=== PATIENT | male | born 1965 | race Caucasian/White ===

== ENCOUNTER 2021-12-28 17:54 | Inpatient (IN) ==
[2021-12-28 18:42] LABS: Basophils # (auto) 0.04 K/uL (0-0.2); Basophils % (auto) 0.5 %; Eosinophils # (auto) 0.04 K/uL (0-0.5); Eosinophils % (auto) 0.5 %; Hematocrit (blood only) 42.8 % (42-52); Hemoglobin 14.7 g/dL (14.0-18.0); Immature Granulocytes # (auto) 0.05 K/uL (0.00-0.02); Immature Granulocytes % (auto) 0.6 %; Lymphocytes # (auto) 1.75 K/uL (1.2-3.4); Mean Corpuscular Hemoglobin 30.2 pg (25-34); Mean Corpuscular Hgb Conc 34.3 g/dL (32-36); Mean Corpuscular Volume 88.1 fL (80-100); Monocytes # (auto) 0.88 K/uL (0.11-0.59); Monocytes % (auto) 10.1 %; Neutrophils # (auto) 5.99 K/uL (1.4-6.5); Neutrophils % (auto) 68.3 %; Platelet Count 208 K/uL (130-400); RDW Standard Deviation 41.9 fL (36.4-46.3); Red Blood Count 4.86 M/uL (4.7-6.1); White Blood Count 8.75 K/uL (4.8-10.8)
[2021-12-28] MEDS ORDERED: LORazepam 2 MG/1 ML VIAL IV STA (18:50)
[2021-12-28] MEDS ORDERED: MULTI-VITAMIN INFUSION 10 ML, THIAMINE HCL 100 MG, FOLIC ACID 1 MG in SODIUM CHLORIDE 0... IV ONE (18:50)
[2021-12-28 19:03] LABS: Albumin Globulin Ratio 1.9 (0.9-2); Albumin Level 4.4 gm/dl (3.4-5.0); BUN Creatinine Ratio 13.3 (10-20); Bilirubin,Total 0.8 mg/dl (0.2-1.0); Calcium 9.5 mg/dl (8.5-10.1); Creatinine Clr Calc Pharmacy 97.9 ml/min; Est GFR (African American) 120.5 ml/min; Globulin 2.3 gm/dl (2.5-4.0); Potassium 3.7 mmol/L (3.5-5.1); Total Protein 6.7 gm/dl (6.0-8.3)
[2021-12-28 19:29] LABS: Magnesium 1.7 mg/dl (1.7-2.4); Phosphorus 3.6 mg/dl (2.5-4.9)
[2021-12-28] MEDS ORDERED: GABAPENTIN 600 MG TAB PO ONE (20:09)
[2021-12-28] MEDS ORDERED: GABAPENTIN 1200MG ALCOHOL WITHDRAWAL LOAD PO STA (20:09)
[2021-12-28] MEDS ORDERED: cloNIDine HCL 0.1 MG TAB PO ONE (22:06)
--- NOTE | 2021-12-28 22:06 | History & Physical Report ---
Date of Service December 28, 2021 Assessment & Plan (1) Alcohol withdrawal syndrome: Plan: Situational hypertension secondary to above Suicidality Hyperglycemia rule out DM Medical telemetry CHELE S, DT precautions Clonidine 1 dose now for elevated BP Initiate lisinopril if with persistent BP elevation Suicide precautions, Psych consult Re: Suicidality Check hemoglobin A1c DVT prophylaxis. Lovenox subcu Full code Text document was generated using [employer] voice recognition software. It may contain grammatical or spelling errors. Kindly contact undersigned for clarification of any documentation item in question. History of Present Illness Chief Complaint: Alcohol withdrawal Primary Care Provider: NO PCP History obtained from patient and records. Medical history significant for alcohol abuse. Patient seen at the ER last week for alcohol withdrawal and insomnia issues. Patient refused rehab recommendation. Patient discharged on Librium prescription. Librium ineffective for insomnia as per patient. Episodic tachycardia and high BP at home. Patient denies chest pain, shortness of breath, headache, abdominal pain symptoms. No prior history of alcohol withdrawal seizures. Patient admits to fleeting suicidal thoughts of blowing his head because he has had a terrible life. Patient returned to ER for evaluation. Medical History as above Surgical History : None Family History : Alcoholism Personal/Social history : Non-smoker, alcohol abuse, currently unemployed Allergies Allergy/AdvReac Type Severity Reaction Status Date / Time No Known Allergies Allergy Unverified 12/28/21 18:54 Home Medications Medication Instructions Recorded Confirmed Type No Known Home Medications 12/28/21 12/28/21 History Past Med/Surg History Social History Smoking Status: Never smoker Hx Alcohol Use: Yes Alcohol type: hard liquor Hx Substance Use: No Preferred Language: Belizean Communication Ability: Effective Executive Cyber Leader Required: No Beliefs That Will Affect Care: None Current Living Situation: Alone Other Information That Helps Us Care for You: No Feels Safe at Home: Yes Safety Concerns: Feels Safe At This Time Assistive Devices: None Review of Systems Review of Systems: As per HPI, all 10 systems reviewed, all other ROS negative Physical Exam Physical Exam: GENERAL: Comfortable, using his laptop at bedside at time of encounter, no respiratory distress SKIN: Normal color, warm HEENT: [place] palpebral conjunctivae, no ptosis, dry buccal mucosa NECK : Supple, no tenderness CHEST : CTA, no tenderness HEART : RRR, no obvious murmurs ABDOMEN: Some distention, nontender EXTREMITIES : No LE swelling/tenderness, no other conspicuous deformities noted NEUROLOGIC : Coherent, no facial asymmetry, no other gross focality Results & Data Results & Data ([facility]) Vital Signs (Past 12 Hours) Vital Signs Temp Pulse Pulse Resp BP BP Pulse Ox 12/28/21 21:49 75 19 160/94 H 97 12/28/21 21:27 67 19 174/109 H 97 12/28/21 20:45 57 L 18 170/104 H 12/28/21 20:40 56 L 18 12/28/21 20:33 67 20 167/101 H 98 12/28/21 20:30 62 17 182/117 H 12/28/21 19:38 61 158/100 H 12/28/21 18:48 63 16 213/113 H 97 12/28/21 18:01 36.7 C 83 20 218/104 H 98 Laboratory Results Laboratory Results WBC 8.75 K/uL (4.8-10.8) 12/28/21 18:30 RBC 4.86 M/uL (4.7-6.1) 12/28/21 18:30 Hgb 14.7 g/dL (14.0-18.0) 12/28/21 18:30 Hct 42.8 % (42-52) 12/28/21 18:30 MCV 88.1 fL (80-100) 12/28/21 18:30 MCH 30.2 pg (25-34) 12/28/21 18:30 MCHC 34.3 g/dL (32-36) 12/28/21 18:30 RDW Std Deviation 41.9 fL (36.4-46.3) 12/28/21 18:30 RDW Coeff of Renetta 13.0 % (11.5-14.5) 12/28/21 18:30 Plt Count 208 K/uL (130-400) 12/28/21 18:30 MPV 10.0 fL (7.4-10.4) 12/28/21 18:30 Immature Gran % (Auto) 0.6 % 12/28/21 18:30 Neut % (Auto) 68.3 % 12/28/21 18:30 Lymph % (Auto) 20.0 % 12/28/21 18:30 Graves % (Auto) 10.1 % 12/28/21 18:30 Eos % (Auto) 0.5 % 12/28/21 18:30 Baso % (Auto) 0.5 % 12/28/21 18:30 Neut # (Auto) 5.99 K/uL (1.4-6.5) 12/28/21 18:30 Lymph # (Auto) 1.75 K/uL (1.2-3.4) 12/28/21 18:30 Graves # (Auto) 0.88 K/uL (0.11-0.59) H 12/28/21 18:30 Eos # (Auto) 0.04 K/uL (0-0.5) 12/28/21 18:30 Baso # (Auto) 0.04 K/uL (0-0.2) 12/28/21 18:30 Immature Gran # (Auto) 0.05 K/uL (0.00-0.02) H 12/28/21 18:30 Sodium 137 mmol/L (136-145) 12/28/21 18:30 Potassium 3.7 mmol/L (3.5-5.1) 12/28/21 18:30 Chloride 100 mmol/L (98-107) 12/28/21 18:30 Carbon Dioxide 32 mmol/L (21-32) 12/28/21 18:30 Anion Gap 5 (3-11) 12/28/21 18:30 BUN 10 mg/dl (6-23) 12/28/21 18:30 Creatinine 0.75 mg/dl (0.6-1.4) 12/28/21 18:30 Est Cr Clr Drug Dosing 97.9 ml/min 12/28/21 18:30 Est GFR ( Amer) 120.5 ml/min 12/28/21 18:30 Est GFR (Non-Af Amer) 104.0 ml/min 12/28/21 18:30 BUN/Creatinine Ratio 13.3 (10-20) 12/28/21 18:30 Glucose 110 mg/dl (70-99(Fasting)) H 12/28/21 18:30 Calcium 9.5 mg/dl (8.5-10.1) 12/28/21 18:30 Phosphorus 3.6 mg/dl (2.5-4.9) 12/28/21 18:30 Magnesium 1.7 mg/dl (1.7-2.4) 12/28/21 18:30 Total Bilirubin 0.8 mg/dl (0.2-1.0) 12/28/21 18:30 AST 20 U/L (13-39) 12/28/21 18:30 ALT 13 U/L (7-52) 12/28/21 18:30 Alkaline Phosphatase 55 U/L (34-104) 12/28/21 18:30 Total Protein 6.7 gm/dl (6.0-8.3) 12/28/21 18:30 Albumin 4.4 gm/dl (3.4-5.0) 12/28/21 18:30 Globulin 2.3 gm/dl (2.5-4.0) L 12/28/21 18:30 Albumin/Globulin Ratio 1.9 (0.9-2) 12/28/21 18:30 Ethyl Alcohol mg/dL < 10.0 mg/dl (<10.0) 12/28/21 18:30 SARS-CoV-2, RNA, NAAT NEGATIVE (NEGATIVE) 12/28/21 20:29 Diagnostic Findings EKG as per my interpretation rate 65, NSR, LAD, LAFB, no ischemia (1) Alcohol withdrawal syndrome Complication of substance-induced condition: uncomplicated Qualified Code(s): F10.230 - Alcohol dependence with withdrawal, uncomplicated
[2021-12-28] MEDS ORDERED: LORazepam 2 MG/1 ML VIAL IV PRN ×3 (22:11)
[2021-12-28] MEDS ORDERED: ATIVAN IV ALCOHOL WITHDRAWL IV PRN (22:11)
[2021-12-28] MEDS ORDERED: oxyCODONE HCL IR 5 MG TAB (IMMEDIATE RELEASE) PO PRN (22:54)
[2021-12-28] MEDS ORDERED: ACETAMINOPHEN 325 MG TAB PO PRN (22:54)
[2021-12-28] MEDS ORDERED: PROMETHAZINE HCL 6.25 MG in SODIUM CHLORIDE 0.9% 50 ML IV PRN (22:54)
[2021-12-28] MEDS: FOLIC ACID 1 MG TAB PO SCH (23:31)
[2021-12-28] MEDS: THIAMINE HCL 100 MG TAB PO SCH (23:31)
[2021-12-29] MEDS: GABAPENTIN 600 MG TAB PO SCH ×2 (02:11→09:59)
[2021-12-29] MEDS ORDERED: MELATONIN 3 MG TAB PO PRN (02:29)
[2021-12-29] MEDS ORDERED: lisinopril 2.5 MG TAB PO ONE (05:21)
[2021-12-29 06:05] LABS: Basophils # (auto) 0.03 K/uL (0-0.2); Basophils % (auto) 0.3 %; Eosinophils # (auto) 0.12 K/uL (0-0.5); Eosinophils % (auto) 1.3 %; Hematocrit (blood only) 40.5 % (42-52); Hemoglobin 14.3 g/dL (14.0-18.0); Immature Granulocytes # (auto) 0.03 K/uL (0.00-0.02); Immature Granulocytes % (auto) 0.3 %; Lymphocytes # (auto) 2.67 K/uL (1.2-3.4); Lymphocytes % (auto) 27.9 %; Mean Corpuscular Hemoglobin 30.5 pg (25-34); Mean Corpuscular Hgb Conc 35.3 g/dL (32-36); Mean Corpuscular Volume 86.4 fL (80-100); Mean Platelet Volume 9.7 fL (7.4-10.4); Monocytes # (auto) 0.95 K/uL (0.11-0.59); Monocytes % (auto) 9.9 %; Neutrophils # (auto) 5.76 K/uL (1.4-6.5); Neutrophils % (auto) 60.3 %; Platelet Count 181 K/uL (130-400); RDW Coefficient of Variation 13.1 % (11.5-14.5); RDW Standard Deviation 41.5 fL (36.4-46.3); Red Blood Count 4.69 M/uL (4.7-6.1); White Blood Count 9.56 K/uL (4.8-10.8)
[2021-12-29 06:22] LABS: BUN Creatinine Ratio 11.8 (10-20); Est GFR (African American) 125.5 ml/min; Est GFR (Non-African American) 108.3 ml/min; Potassium 3.3 mmol/L (3.5-5.1)
[2021-12-29 07:25] LABS: Estimated Average Glucose 114 mg/dl; Hemoglobin A1C 5.6 % (4.5-5.6)
[2021-12-29 07:41] LABS: Appearance Urine Clear (Clear); Bilirubin Urine Negative (Negative); Blood Urine Negative (Negative); Color Urine Yellow; Glucose Urine UA Negative (Negative); Ketones Urine Negative (Negative); Leukocyte Esterase Urine Negative (Negative); Nitrite Urine Negative (Negative); Protein Urine Negative (Negative); Specific Gravity Urine 1.011 (1.000-1.030); Urobilinogen Urine Negative (Negative); pH Urine 7.5 (4.5-7.5)
[2021-12-29] MEDS ORDERED: POTASSIUM CHLORIDE CRTAB 20 MEQ TABCR PO STA (08:50)
[2021-12-29] MEDS ORDERED: MULTIVITAMIN TAB PO SCH (09:00)
[2021-12-29] MEDS: THIAMINE HCL 100 MG TAB PO SCH (09:06)
[2021-12-29] MEDS: FOLIC ACID 1 MG TAB PO SCH (09:06)
[2021-12-29] MEDS: ENOXAPARIN INJ 40 MG/0.4 ML SYR SQ SCH ×2 (09:06→09:18)
--- NOTE | 2021-12-29 10:54 | Electrocardiogram Report ---
Test Reason : Blood Pressure : / mmHG Vent. Rate : 068 BPM Atrial Rate : 068 BPM P-R Int : 140 ms QRS Dur : 086 ms QT Int : 408 ms P-R-T Axes : 055 -15 040 degrees QTc Int : 433 ms Normal sinus rhythm Normal ECG No previous ECGs available Confirmed by Farrukh Martínez ([id number]) on 12/29/2021 10:54:20 AM Referred By: REFERRED SELF Confirmed By:Farrukh Martínez
--- NOTE | 2021-12-29 14:44 | Discharge Summary ---
Date of Service December 29, 2021 Admission HPI Per Admitting Provider History obtained from patient and records. Medical history significant for alcohol abuse. Patient seen at the ER last week for alcohol withdrawal and insomnia issues. Patient refused rehab recommendation. Patient discharged on Librium prescription. Librium ineffective for insomnia as per patient. Episodic tachycardia and high BP at home. Patient denies chest pain, shortness of breath, headache, abdominal pain symptoms. No prior history of alcohol withdrawal seizures. Patient admits to fleeting suicidal thoughts of blowing his head because he has had a terrible life. Patient returned to ER for evaluation. Medical History as above Surgical History : None Family History : Alcoholism Personal/Social history : Non-smoker, alcohol abuse, currently unemployed Admission Exam Per Admitting Provider GENERAL: Comfortable, using his laptop at bedside at time of encounter, no respiratory distress SKIN: Normal color, warm HEENT: [place] palpebral conjunctivae, no ptosis, dry buccal mucosa NECK : Supple, no tenderness CHEST : CTA, no tenderness HEART : RRR, no obvious murmurs ABDOMEN: Some distention, nontender EXTREMITIES : No LE swelling/tenderness, no other conspicuous deformities noted NEUROLOGIC : Coherent, no facial asymmetry, no other gross focality Principal Diagnosis Alcohol abuse/dependence Uncontrolled hypertension Discharge Exam GENERAL: Alert and oriented x3. NAD, on RA. HEENT: No pallor, no icterus. Pupils equal, round and reactive to light. Oral mucosa moist. NECK: No JVD, no neck masses. HEART: S1 and S2 heard. Regular rate and rhythm. No murmur, no gallop. RESPIRATORY SYSTEM: Normal AP diameter. No accessory muscle use. No wheezing, no crackles. ABDOMEN: Soft, bowel sounds present, nontender, no distention. CENTRAL NERVOUS SYSTEM: No facial droop. Speech is clear. Obeys simple commands. Moves extremities. EXTREMITIES: No edema, no erythema seen. No hand tremors noted. Discharge Data Allergies Allergy/AdvReac Type Severity Reaction Status Date / Time No Known Allergies Allergy Unverified 12/28/21 18:54 Consultations 12/28/21 20:15 ED Decision to Admit Stat 12/28/21 22:54 Consult Psychiatry Routine Hospital Course (1) Alcohol withdrawal syndrome: 56-year-old man with alcohol abuse history presented to the ED due to concerns of withdrawal signs and symptoms and high blood pressure at home. Patient has been managed with AWSS protocol while in the hospital, his CIWA has been very low to 0 on the day of discharge, he does not intend to quit drinking upon discharge, he wants to go home and is pretty much adamant about it. He was about to leave AMA, told him he needs psychiatry clearance before he can leave AMA. Upon my examination, patient denied any further suicidality intention. Psychiatry evaluated him. Discussed with psychiatry, they cleared him for discharge from their point of view. For patient's hypertension, he is started on a small dose of lisinopril which will be continued upon DC, get blood work CBC and CMP done in a week time upon discharge. Patient reports no outpatient PCP. Advised patient to establish PCP as an outpatient for ongoing care. Discussed in detail about alcohol cessation and different methods, patient does not have interest in quitting drinking. He claims that his drinking habit is "healthy and is under his control". Following instructions were communicated to the patient at the point of discharge: Establish and follow-up with your PCP as an outpatient. Strongly advise against any drinking in future, but as discussed at the bedside you intend to continue with your drinking, if you ever have a thought of quitting drinking in future please contact with your PCP prior to doing so to avoid the risks of withdrawal and/or seizures. Drinking has a lot of side effects and adverse effects in your health as discussed at the bedside. Strongly advised to establish and maintain follow-up with psychiatry as an outpatient as discussed at the bedside. Your blood pressure was elevated while in hospital, you have been started on a small dose of lisinopril, maintain your blood pressure measurement log twice a day, take it to your primary care physician to adjust your blood pressure medication as appropriate. Get your blood work CMP and CBC done in a week time upon discharge. If you have any withdrawal signs or symptoms, please contact emergency immediately or call 911. Take medications as prescribed. Total Time Total Time Spent Total Time Spent (In Minutes): 40 Discharge Plan Discharge Items Patient Disposition: Home - Self-Care Reason For Visit: ETOH WITHDRAWAL Discharge Diagnosis: Alcohol abuse/dependence Uncontrolled hypertension Activity: Resume your previous activity Non-emergency contact: Primary Care Provider Call non-emergency contact if: you have any medication questions, your symptoms worsen and your temperature is above 101 Follow-up/Referrals: PCP,NO [Primary Care Provider] - Diet: Heart Healthy Diet Comment: Increase protein content in your diet. Addtl Attending Provider Instructions: Establish and follow-up with your PCP as an outpatient. Strongly advise against any drinking in future, but as discussed at the bedside you intend to continue with your drinking, if you ever have a thought of quitting drinking in future please contact with your PCP prior to doing so to avoid the risks of withdrawal and/or seizures. Drinking has a lot of side effects and adverse effects in your health as discussed at the bedside. Strongly advised to establish and maintain follow-up with psychiatry as an outpatient as discussed at the bedside. Your blood pressure was elevated while in hospital, you have been started on a small dose of lisinopril, maintain your blood pressure measurement log twice a day, take it to your primary care physician to adjust your blood pressure medication as appropriate. Get your blood work CMP and CBC done in a week time upon discharge. If you have any withdrawal signs or symptoms, please contact emergency immediately or call 911. Take medications as prescribed. Pending Studies at Discharge: No Stand-Alone Forms: My [facility], Smoking Cessation Medications and DC Order Prescriptions: New lisinopril 2.5 mg Tablet 2.5 mg PO QAM Qty: 30 RF: 0 acetaminophen 325 mg Tablet 650 mg PO Q6H PRN (Reason: fever or pain) Qty: 30 RF: 0 melatonin 3 mg Tablet 3 mg PO HS PRN (Reason: sleep) Qty: 30 RF: 0 folic acid 1 mg Tablet 1 mg PO QAM Qty: 30 RF: 0 multivitamin with folic acid [Daily-Scot (with folic acid)] 400 mcg Tablet 1 tab PO QAM Qty: 30 RF: 0 thiamine HCl (vitamin B1) 100 mg Tablet 100 mg PO QAM Qty: 15 RF: 0 Discharge Orders: Discharge Order (Routine); Ordered 12/29/21 Ordered By: Aniket Irwin Admission Data Admit Date/Time: 12/28/21 22:09 Attending Provider: Aniket Irwin Admit Provider: Jose Duarte Primary Care Provider: PCP,NO Other Providers: Jose Duarte ; Melina Carrion ; Sarah Persaud ; Ann Chun
--- NOTE | 2021-12-29 14:48 | Psychiatric Consultation ---
Date of Consultation December 29, 2021 Impression / Recommendations Impression 56 yo male with a hx of EToh dependence which he is minimizing. He has an unusual personality, a mix of schizoid and OCD traits but no evidence of reji, psychosis, or delirium interfering with his medical decision making. Cannot fully exclude Korsakoffs as seems some degree of confabulation around "vermin". (1) Alcohol withdrawal syndrome: Complication of substance-induced condition: uncomplicated Qualified Code(s): F10.230 - Alcohol dependence with withdrawal, uncomplicated recommended gun be secured as likely to experience withdrawal again, but there is no indication for a 302 warrant or removal given rights He is aware of risks associated with withdrawal and that he is not medical cleared, risk for seizure/autonomic instability, etc. Discussed sleep medication in place of self medication and he plans to try melatonin OTC on his own he declines any outpatient services Psych History Identifying Data Mr. Young is a 56 yo male from [place], admit 12/28/21 for management of ETOH withdrawal. Consult is by Dr. Irwin for suicide risk assessment. Chief Complaint "I say all sorts of stuff when I'm withdrawing but I don't mean it". History of Present Illness Patient seen. Chart reviewed. Discussed briefly with Dr. Irwin, -on- aide and nursing. The patient has been on -- since making a statement during his H&P about "fleeting suicidal thoughts of blowing his head because he has had a terrible life". When asked to clarify he mainly focussed on things that bother him around his house, repeatedly referring to the vermin. Vermin he defines as pairs of robins that "mess with me" and rabbits and mice that come into the yard/dig. He denies infestation in his home. He has shot at them with pellet gun as wants to be left alone and they "just keep coming back." He reports signing a lease to move into an apartment so he can fix up his place. He states that he has shifted his sleep schedule by 6 hours so he does most activities after dark as this all bothers him so much. In that sense he hasn't been sleeping as well and it has been a trigger for his drinking. It should be noted that he was recently in ED for Etoh withdrawal and sent out on libirum taper. He states the librium didn't help and he plans to continue to drink 1 drink every night for sleep. Reviewed past significant Etoh use but refused to quantify and never attended AA or rehab. "I'm a loner, I do things on my own." He states he has a gun for protection but denies paranoia or past threats, "that's what people who live alone do." He reports no friends or family in area, typically would provide collateral and this seems reliable. Outside of sleep phase shift he denies depressive symptoms and states that he stays busy via exercise, diet, yard work which he documents in logs in a 3 ring binder. Past Psychiatric History Previous Psych History: denied Previous Psych Admissions: denied History of Previous Suicide Attempt: No Allergies Allergy/AdvReac Type Severity Reaction Status Date / Time No Known Allergies Allergy Unverified 12/28/21 18:54 Home Medications Medication Instructions Recorded Confirmed Type acetaminophen 325 mg tablet 650 mg PO Q6H PRN #30 tab 12/29/21 Rx folic acid 1 mg tablet 1 mg PO QAM #30 tab 12/29/21 Rx lisinopril 2.5 mg tablet 2.5 mg PO QAM #30 tab 12/29/21 Rx melatonin 3 mg tablet 3 mg PO HS PRN #30 tab 12/29/21 Rx multivitamin with folic acid 400 1 tab PO QAM #30 tab 12/29/21 Rx mcg tablet (Daily-Scot (with folic acid)) thiamine HCl (vitamin B1) 100 mg 100 mg PO QAM #15 tab 12/29/21 Rx tablet Family History denied Substance Abuse History see HPI, clear hx of Etoh dependence Personal History Highest 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) Employment Status: Other (hasn't worked for years, lives off an inheritance) Marital Status: Single Number Of Children: 0 Beliefs That Will Affect Care: None History of Legal Problems: denied Additional Comments: denied trauma hx Patient History Social History Smoking Status: Never smoker Hx Alcohol Use: Yes Alcohol type: hard liquor Hx Substance Use: No Preferred Language: Bol[place]ian Communication Ability: Effective Planning Director Required: No Beliefs That Will Affect Care: None marital status: Single Current Living Situation: Alone Other Information That Helps Us Care for You: No Feels Safe at Home: Yes Safety Concerns: Feels Safe At This Time Assistive Devices: None Physical Exam Psychiatric: Orientation: alert and oriented x 3 Apperance: appropriately dressed and appropriately groomed Eye Contact: good eye contact Motor Behavior: no abnormal motor movements Speech: normal rate/rhythm/volume of speech Affect: euthymic affect Mood: no anxious mood Thought Process: + circumstantial thought process Thought Content: reality based without delusions Suicidal Thoughts: denies suicidal thoughts Homicidal Thoughts: denies homicidal thoughts Hallucinations: no auditory hallucinations and no visual hallucinations Cognition: attention grossly intact and language grossly intact Estimated Intelligence: consistent with education level Vital Signs (Past 24 Hours): Last Vital Signs Temp 36.5 C 12/29/21 11:10 Pulse 53 L 12/29/21 11:10 Resp 16 12/29/21 11:10 BP 153/93 H 12/29/21 11:10 Pulse Ox 97 12/29/21 11:10 Review of Systems All systems reviewed & are unremarkable except as noted in HPI & below Results & Data (PSY) Medications Administered Enoxaparin Sodium (Enoxaparin Inj 40 Mg/0.4 Ml Syr) 40 mg SQ QAGREAT [facility] Stop: 01/28/22 08:59 Last Admin: 12/29/21 09:18 Dose: Not Given Documented by: [id number] Folic Acid (Folic Acid 1 Mg Tab) 1 mg PO QAGREAT [facility] Stop: 01/27/22 22:53 Last Admin: 12/29/21 09:06 Dose: 1 mg Documented by: [id number] Admin: 12/28/21 23:31 Dose: 1 mg Documented by: [id number] Lorazepam (Lorazepam 2 Mg/1 Ml Vial) 1 mg IV UD PRN; Protocol PRN Reason: EtOH Withdrawl AWSS Score 6,7 Stop: 01/27/22 22:10 Last Admin: 12/29/21 01:14 Dose: 1 mg Documented by: [id number] Multivitamins (Multivitamin Tab) 1 tab PO QAGREAT [facility] [place] Stop: 01/28/22 08:59 Last Admin: 12/29/21 09:06 Dose: 1 tab Documented by: [id number] Thiamine HCl (Thiamine Hcl 100 Mg Tab) 100 mg PO QAM [facility] Stop: 01/27/22 22:53 Last Admin: 12/29/21 09:06 Dose: 100 mg Documented by: [id number] Admin: 12/28/21 23:31 Dose: 100 mg Documented by: [id number] Coding Level of Care Code 40326 Inpt Consult Level 3 Diagnoses Alcohol withdrawal syndrome F10.230 Complication of substance-induced condition: uncomplicated
[2021-12-29] MEDS ORDERED: GABAPENTIN 600 MG TAB PO SCH (16:15)
[2021-12-30] MEDS ORDERED: lisinopril 2.5 MG TAB PO SCH (09:00)
--- NOTE | 2021-12-30 11:46 | Emergency Department Note ---
Impression & Plan Alcohol withdrawal syndrome, Hypertension, Anxiety ED Provider Note CHIEF COMPLAINT: Alcohol withdrawal HISTORY OF PRESENT ILLNESS: This 56-year-old male patient presents to the emergency department with complaints of alcohol withdrawal. The patient states this is a longstanding issue and he has gone through this process on multiple occasions. Patient states he has significant anxiety related to his fear of flying varmots. He has been a heavy drinker for many years. He states his blo od pressure is often elevated and his heart rate stays very low because he is "a runner." He states he spends most of his time exercising and running to keep himself occupied. Patient does drink hard alcohol. He was recently evaluated in the emergency department and given Librium to attempt to taper at home but relapsed and is asking for assistance. The patient does not currently have insurance and is concerned about a bill. Case management has been asked to see the patient. REVIEW OF SYSTEMS: A review of systems was performed with positives and pertinent negatives listed in the history of present illness. 10 systems were reviewed and are otherwise negative. ALLERGIES: see below MEDICATIONS: see below PMH: see below SOCIAL HISTORY: see below DDx: Overdose, toxicologic, infection, hypoglycemia, electrolyte abnormalities, cardiac sources, intracerebral event, neurologic, trauma, as well as other pathologies. PHYSICAL EXAM: Vital signs reviewed. Noted to be hypertensive General: Well-appearing but anxious 56 yo male, in no significant distress. HEENT: No scleral icterus, PERRLA, neck supple. Atraumatic. Cardiovascular: Regular rate and rhythm, no extra sounds. Pulmonary: Clear to auscultation bilaterally, normal work of breathing. Abdomen: Soft, nontender, nondistended, positive bowel sounds. Musculoskeletal: Atraumatic, no peripheral edema. Neurologic: Patient awake alert and oriented x 3 Skin: Warm, dry, no rash EMERGENCY DEPARTMENT COURSE/MDM: THis pt was evaluated and appeared to be anxious but in no distress. IV access was obtained and lab work was drawn. Pt was hydrated with a banana bag. He was given 2 mg of IV Ativan. He was observed on the cardiac cath tech and noted to be hypertensive which did improve slightly after the Ativan. Patient's laboratory work is fairly reassuring, alcohol level is negative. He was given a dose of Neurontin for alcohol withdrawal load. Patient's case was discussed with the hospitalist service who will evaluate the patient for admission and further management. Patient is aware of the plan and agrees. MONITORING: An order for cardiac monitoring was placed and the patient is noted to be in a sinus bradycardia at 57 beats per minute. EKG: NSR at 68 bpm, normal QTc, no PVC, no PAC. normal ST segments. normal axis. no previous for comparison DISPOSITION: admit Past Med/Surg History Medical History (Updated 01/01/22 @ 23:36 by Evie Santoyo MD) Alcohol withdrawal syndrome Social History Smoking Status: Never smoker Hx Alcohol Use: Yes Alcohol type: hard liquor Hx Substance Use: No Preferred Language: South African Communication Ability: Effective Farm Service Consultant Required: No Beliefs That Will Affect Care: None marital status: Single Current Living Situation: Alone Feels Safe at Home: Yes Assistive Devices: None Allergies Allergies Allergy/AdvReac Type Severity Reaction Status Date / Time No Known Allergies Allergy Unverified 12/28/21 18:54 Home Meds Previous Rx's Medication Instructions Recorded acetaminophen 325 mg tablet 650 mg PO Q6H PRN #30 tab 12/29/21 folic acid 1 mg tablet 1 mg PO QAM #30 tab 12/29/21 lisinopril 2.5 mg tablet 2.5 mg PO QAM #30 tab 12/29/21 melatonin 3 mg tablet 3 mg PO HS PRN #30 tab 12/29/21 multivitamin with folic acid 400 1 tab PO QAM #30 tab 12/29/21 mcg tablet (Daily-Scot (with folic acid)) thiamine HCl (vitamin B1) 100 mg 100 mg PO QAM #15 tab 12/29/21 tablet Results & Data (ED) Home Medications Current Medication List: was personally reviewed by me Laboratory Data Attestation: I reviewed the patient's lab results. Result diagrams: 12/29/21 05:48 12/29/21 05:48 Lab Results 12/28/21 12/28/21 12/28/21 Range/Units 18:30 18:30 18:30 WBC 8.75 (4.8-10.8) K/uL RBC 4.86 (4.7-6.1) M/uL Hgb 14.7 (14.0-18.0) g/dL Hct 42.8 (42-52) % MCV 88.1 (80-100) fL MCH 30.2 (25-34) pg MCHC 34.3 (32-36) g/dL RDW Std Deviation 41.9 (36.4-46.3) fL RDW Coeff of Renetta 13.0 (11.5-14.5) % Plt Count 208 (130-400) K/uL MPV 10.0 (7.4-10.4) fL Immature Gran % (Auto) 0.6 % Neut % (Auto) 68.3 % Lymph % (Auto) 20.0 % [place] % (Auto) 10.1 % Eos % (Auto) 0.5 % Baso % (Auto) 0.5 % Neut # (Auto) 5.99 (1.4-6.5) K/uL Lymph # (Auto) 1.75 (1.2-3.4) K/uL [place] # (Auto) 0.88 H (0.11-0.59) K/uL Eos # (Auto) 0.04 (0-0.5) K/uL Baso # (Auto) 0.04 (0-0.2) K/uL Immature Gran # (Auto) 0.05 H (0.00-0.02) K/uL Sodium 137 (136-145) mmol/L Potassium 3.7 (3.5-5.1) mmol/L Chloride 100 (98-107) mmol/L Carbon Dioxide 32 (21-32) mmol/L Anion Gap 5 (3-11) BUN 10 (6-23) mg/dl Creatinine 0.75 (0.6-1.4) mg/dl Est Cr Clr Drug Dosing 97.9 ml/min Est GFR ( Amer) 120.5 ml/min Est GFR (Non-Af Amer) 104.0 ml/min BUN/Creatinine Ratio 13.3 (10-20) Glucose 110 H (70-99(Fasting)) mg/dl Estimat Average Glucose mg/dl Hemoglobin A1c (4.5-5.6) % Calcium 9.5 (8.5-10.1) mg/dl Phosphorus (2.5-4.9) mg/dl Magnesium (1.7-2.4) mg/dl Total Bilirubin 0.8 (0.2-1.0) mg/dl AST 20 (13-39) U/L ALT 13 (7-52) U/L Alkaline Phosphatase 55 (34-104) U/L Total Protein 6.7 (6.0-8.3) gm/dl Albumin 4.4 (3.4-5.0) gm/dl Globulin 2.3 L (2.5-4.0) gm/dl Albumin/Globulin Ratio 1.9 (0.9-2) Ethyl Alcohol mg/dL < 10.0 (<10.0) mg/dl SARS-CoV-2, RNA, NAAT (NEGATIVE) 12/28/21 12/28/21 12/28/21 Range/Units 18:30 18:30 20:29 WBC (4.8-10.8) K/uL RBC (4.7-6.1) M/uL Hgb (14.0-18.0) g/dL Hct (42-52) % MCV (80-100) fL MCH (25-34) pg MCHC (32-36) g/dL RDW Std Deviation (36.4-46.3) fL RDW Coeff of Renetta (11.5-14.5) % Plt Count (130-400) K/uL MPV (7.4-10.4) fL Immature Gran % (Auto) % Neut % (Auto) % Lymph % (Auto) % [place] % (Auto) % Eos % (Auto) % Baso % (Auto) % Neut # (Auto) (1.4-6.5) K/uL Lymph # (Auto) (1.2-3.4) K/uL [place] # (Auto) (0.11-0.59) K/uL Eos # (Auto) (0-0.5) K/uL Baso # (Auto) (0-0.2) K/uL Immature Gran # (Auto) (0.00-0.02) K/uL Sodium (136-145) mmol/L Potassium (3.5-5.1) mmol/L Chloride (98-107) mmol/L Carbon Dioxide (21-32) mmol/L Anion Gap (3-11) BUN (6-23) mg/dl Creatinine (0.6-1.4) mg/dl Est Cr Clr Drug Dosing ml/min Est GFR ( Amer) ml/min Est GFR (Non-Af Amer) ml/min BUN/Creatinine Ratio (10-20) Glucose (70-99(Fasting)) mg/dl Estimat Average Glucose 114 mg/dl Hemoglobin A1c 5.6 (4.5-5.6) % Calcium (8.5-10.1) mg/dl Phosphorus 3.6 (2.5-4.9) mg/dl Magnesium 1.7 (1.7-2.4) mg/dl Total Bilirubin (0.2-1.0) mg/dl AST (13-39) U/L ALT (7-52) U/L Alkaline Phosphatase (34-104) U/L Total Protein (6.0-8.3) gm/dl Albumin (3.4-5.0) gm/dl Globulin (2.5-4.0) gm/dl Albumin/Globulin Ratio (0.9-2) Ethyl Alcohol mg/dL (<10.0) mg/dl SARS-CoV-2, RNA, NAAT NEGATIVE (NEGATIVE) Administered Medications Discontinued Medications Clonidine HCl (Clonidine Hcl 0.1 Mg Tab) 0.1 mg PO NOW ONE Stop: 12/28/21 22:07 Last Admin: 12/28/21 22:31 Dose: 0.1 mg Documented by: [id number] Enoxaparin Sodium (Enoxaparin Inj 40 Mg/0.4 Ml Syr) 40 mg SQ [facility] Stop: 01/28/22 08:59 Last Admin: 12/29/21 09:18 Dose: Not Given Documented by: [id number] Folic Acid (Folic Acid 1 Mg Tab) [facility] Stop: 01/27/22 22:53 Last Admin: 12/29/21 09:06 Dose: 1 mg Documented by: [id number] Admin: 12/28/21 23:31 Dose: 1 mg Documented by: [id number] Gabapentin (Gabapentin 1200mg Alcohol Withdrawal Load) 1 ea PO NOW STA; Protocol Stop: 12/28/21 20:10 Last Admin: 12/28/21 20:34 Dose: Not Given Documented by: [id number] Gabapentin (Gabapentin 600 Mg Tab) 1,200 mg PO NOW ONE Stop: 12/28/21 20:10 Last Admin: 12/28/21 20:33 Dose: 1,200 mg Documented by: [id number] Gabapentin (Gabapentin 600 Mg Tab) 600 mg PO Q6H [facility] Stop: 12/29/21 08:16 Last Admin: 12/29/21 09:59 Dose: 600 mg Documented by: [id number] Admin: 12/29/21 02:11 Dose: 600 mg Documented by: [id number] Multivitamins 10 ml/ Thiamine HCl 100 mg/ Folic Acid 1 mg/Sodium Chloride 1,011.2 mls @ 1,011.2 mls/hr IV .Q1H ONE Stop: 12/28/21 19:49 Last Infusion: 12/28/21 20:08 Dose: 0 mls/hr Documented by: [id number] Admin: 12/28/21 19:16 Dose: 1,011.2 mls/hr Documented by: [id number] Lisinopril (Lisinopril 2.5 Mg Tab) 2.5 mg PO ONE ONE Stop: 12/29/21 05:22 Last Admin: 12/29/21 06:13 Dose: 2.5 mg Documented by: [id number] Lorazepam (Lorazepam 2 Mg/1 Ml Vial) 2 mg IV NOW STA Stop: 12/28/21 18:51 Last Admin: 12/28/21 18:59 Dose: 2 mg Documented by: [id number] Lorazepam (Lorazepam 2 Mg/1 Ml Vial) 1 mg IV UD PRN; Protocol PRN Reason: EtOH Withdrawl AWSS Score 6,7 Stop: 01/27/22 22:10 Last Admin: 12/29/21 01:14 Dose: 1 mg Documented by: [id number] Multivitamins (Multivitamin Tab) 1 tab PO QAM [facility] Stop: 01/28/22 08:59 Last Admin: 12/29/21 09:06 Dose: 1 tab Documented by: [id number] Potassium Chloride (Potassium Chloride Crtab 20 Meq Tabcr) 40 meq PO NOW STA Stop: 12/29/21 08:51 Last Admin: 12/29/21 09:15 Dose: 40 meq Documented by: [id number] Thiamine HCl (Thiamine Hcl 100 Mg Tab) 100 mg PO QAM [facility] Stop: 01/27/22 22:53 Last Admin: 12/29/21 09:06 Dose: 100 mg Documented by: [id number] Admin: 12/28/21 23:31 Dose: 100 mg Documented by: [id number] Blood Pressure Blood Pressure Findings: Elevated blood pressure Blood Pressure Disposition: further management by hospitalist Discharge Plan Visit Data Chief Complaint: Alcohol Withdrawal Stated Complaint: SEVERE ALCOHOL WITHDRAWL ED Provider: Evie Santoyo Discharge Problem: Alcohol withdrawal syndrome, Hypertension, Anxiety Patient Disposition: Admitted As Inpatient Discharge Instructions Interventions: ED Discharge Assessment Last Done: 12/28/21 22:26 Discharge Problem: Alcohol withdrawal syndrome Qualifiers: Complication of substance-induced condition: uncomplicated Qualified Code(s): F10.230 - Alcohol dependence with withdrawal, uncomplicated Hypertension Qualifiers: Hypertension type: unspecified Qualified Code(s): I10 - Essential (primary) hypertension
[2021-12-30] MEDS ORDERED: GABAPENTIN 600 MG TAB PO SCH (20:15)
[2022-01-01] MEDS ORDERED: GABAPENTIN 600 MG TAB PO SCH (08:15)
== END 2021-12-29 16:31 | disposition home or self-care (01) | DRG 897 ==
LOC: ED 17:54 → 2W 22:09

== ENCOUNTER 2022-02-16 07:59 | Inpatient (IN) ==
[2022-02-16] MEDS ORDERED: LORazepam 1 MG TAB PO STA (08:37)
--- NOTE | 2022-02-16 08:45 | Emergency Department Note ---
History of Present Illness General Chief complaint: Mental Health Evaluation Stated complaint: MHID Time Seen by Provider: 02/16/22 08:08 History of Present Illness 56-year-old male presents to the ED with a chief complaint of alcohol withdrawal symptoms. The patient also was brought in as a mental health patient as he called the suicide hotline last night. The patient states that he has been here several times for the same issues. States that he has a $13,000 medical bill at home and he wants treatment " free of cost", as he was not fixed last time he was here. He reports that he drinks about 140 mL of alcohol every night to help him sleep. He feels that he is going through withdrawal on a daily basis. He states that he feels his body is hypertensive. The patient had written a note and put it on his door this stated " suicide-call police." He states that he has no family members that live locally. He figured that someone will eventually go to a store and find the note. He states that he is not suicidal. He states that he could never do that to himself. He wants to stay alive. He states that his major issue is that of the alcoholism and daily alcohol withdrawal symptoms. The patient does not work. He feels that his treatment for alcohol withdrawal needs to be rest and sleep. He states the last time he was here, they woke him up every 4 hours and he did not get the rest he needed to help him get through the alcohol withdrawal. Police did fill out a 302 petition. The patient also did mention, when asked, about the birds following him. He states that the birds follow him. He states that it is not a condition that very few people in the world have. States that the birds are very annoying and keep following him around. Home Medications Medication Instructions Recorded Confirmed Type ascorbic acid (vitamin C) 500 mg 0 mg PO DAILY 01/02/22 02/16/22 History tablet (Vitamin C) cholecalciferol (vitamin D3) 25 0 mcg PO DAILY 01/02/22 02/16/22 History mcg (1,000 unit) chewable tablet (Vitamin D3) folic acid 1 mg tablet 1 mg PO QAM 01/02/22 02/16/22 History lisinopril 2.5 mg tablet 2.5 mg PO QAM 01/02/22 02/16/22 History melatonin 3 mg tablet 3 mg PO HS 01/02/22 02/16/22 History thiamine HCl (vitamin B1) 100 mg 100 mg PO DAILY 01/02/22 02/16/22 History tablet vitamin B complex-vitamin C 100 1 tab PO DAILY 01/02/22 02/16/22 History mg-folic acid 1 mg tablet (Dialyvite) Allergies Allergy/AdvReac Type Severity Reaction Status Date / Time No Known Allergies Allergy Unverified 01/02/22 14:33 Past Med/Surg History Medical History Abnormal blood electrolyte level Alcohol withdrawal syndrome Alcoholism Surgical History No pertinent past surgical history Social History Smoking Status: Never smoker Second Hand Exposure: No; Hx Alcohol Use: Yes Alcohol type: hard liquor Hx Substance Use: No Preferred Language: Romanian Communication Ability: Effective Environmental Services Director Required: No Beliefs That Will Affect Care: None marital status: Single Current Living Situation: Alone Feels Safe at Home: Yes Assistive Devices: None Review of Systems A total of 10 systems reviewed and were otherwise negative Physical Exam Vital Signs Vital Signs - 24 hr 02/16/22 08:01 02/16/22 09:00 02/16/22 11:31 Temperature 36.9 C 37.6 C H Temperature Source Oral Oral Pulse Rate 112 H Pulse Rate [Left Finger] 83 88 Pulse Rhythm [Left Finger] Regular Regular Pulse Strength [Left Finger] Normal Respiratory Rate 20 20 18 Respiratory Effort / Characteristics Non-Labored Spontaneous Non-Labored Respiratory Depth Normal Normal Respiratory Pattern Regular Regular Blood Pressure 181/133 H Blood Pressure [Left Arm] 192/101 H 164/101 H Blood Pressure Mean 149 Blood Pressure Mean [Left Arm] 131 122 Blood Pressure Position Sitting Blood Pressure Position [Left Arm] Sitting Lying Pulse Oximetry 98 98 95 Oxygen Delivery Method Room Air Room Air Room Air Sepsis Recent Fever Within 48 Hours No Sepsis New/Unexplained Change in Mental Status No Sepsis Action Taken by Nursing No Action Required CONSTITUTIONAL/VITAL SIGNS: Reviewed / noted above. GENERAL: Non-toxic in appearance. INTEGUMENTARY: Warm, dry, and [place]. HEAD: Normocephalic. EYES: without scleral icterus or trauma. ENT/OROPHARYNX: clear and moist. LYMPHADENOPATHY/NECK: Is supple without lymphadenopathy or meningismus. RESPIRATORY: Clear to auscultation bilaterally. No increased work of breathing. CARDIOVASCULAR: Regular rate and rhythm. GI/ABDOMEN: Soft and nontender. No organomegaly or pulsatile mass. EXTREMITIES: Warm and well perfused. BACK: No CVA tenderness. NEUROLOGICAL: Intact without focal deficits. PSYCHIATRIC: normal affect. Currently denying being suicidal. MUSCULOSKELETAL: Normally developed with good muscle tone. TRIAGE NURSING DOCUMENTATION REVIEWED. Course Administered Medications Discontinued Medications Lorazepam (Lorazepam 1 Mg Tab) 1 mg PO NOW STA Stop: 02/16/22 08:38 Last Admin: 02/16/22 08:45 Dose: 1 mg Documented by: [id number] Medical Decision Making Differential Diagnosis Differential includes toxic ingestions, self-mutilation, suicidal ideation, suicide attempt, depression. Medical Records Attestation: I reviewed the patient's medical records. Home Medications Current Medication List: was personally reviewed by me Laboratory Data Attestation: I reviewed the patient's lab results. Result diagrams: 02/16/22 09:00 02/16/22 09:00 Lab Results 02/16/22 02/16/22 02/16/22 Range/Units 09:00 09:00 09:00 WBC 9.20 (4.8-10.8) K/uL RBC 5.17 (4.7-6.1) M/uL Hgb 16.3 (14.0-18.0) g/dL Hct 46.6 (42-52) % MCV 90.1 (80-100) fL MCH 31.5 (25-34) pg MCHC 35.0 (32-36) g/dL RDW Std Deviation 45.5 (36.4-46.3) fL RDW Coeff of Renetta 13.8 (11.5-14.5) % Plt Count 261 (130-400) K/uL MPV 9.5 (7.4-10.4) fL Immature Gran % (Auto) 1.2 % Neut % (Auto) 67.8 % Lymph % (Auto) 20.7 % [place] % (Auto) 8.2 % Eos % (Auto) 1.0 % Baso % (Auto) 1.1 % Neut # (Auto) 6.25 (1.4-6.5) K/uL Lymph # (Auto) 1.90 (1.2-3.4) K/uL [place] # (Auto) 0.75 H (0.11-0.59) K/uL Eos # (Auto) 0.09 (0-0.5) K/uL Baso # (Auto) 0.10 (0-0.2) K/uL Immature Gran # (Auto) 0.11 H (0.00-0.02) K/uL Sodium 137 (136-145) mmol/L Potassium 3.4 L (3.5-5.1) mmol/L Chloride 98 (98-107) mmol/L Carbon Dioxide 26 (21-32) mmol/L Anion Gap 13 H (3-11) BUN 9 (6-23) mg/dl Creatinine 0.97 (0.6-1.4) mg/dl Est Cr Clr Drug Dosing 76.6 ml/min Est GFR ( Amer) 102.2 ml/min Est GFR (Non-Af Amer) 88.1 ml/min BUN/Creatinine Ratio 9.3 L (10-20) Glucose 93 (70-99(Fasting)) mg/dl Calcium 9.4 (8.5-10.1) mg/dl Total Bilirubin 0.6 (0.2-1.0) mg/dl AST 20 (13-39) U/L ALT 17 (7-52) U/L Alkaline Phosphatase 65 (34-104) U/L Total Protein 8.1 (6.0-8.3) gm/dl Albumin 4.8 (3.4-5.0) gm/dl Globulin 3.3 (2.5-4.0) gm/dl Albumin/Globulin Ratio 1.5 (0.9-2) TSH 5.104 H (0.300-4.500) uIu/ml Free T4 0.89 (0.61-1.60) ng/dl Urine Color Urine Appearance (Clear) Urine pH (4.5-7.5) Ur Specific [place] (1.000-1.030) Urine Protein (Negative) Urine Glucose (UA) (Negative) Urine Ketones (Negative) Urine Blood (Negative) Urine Nitrite (Negative) Urine Bilirubin (Negative) Urine Urobilinogen (Negative) Ur Leukocyte Esterase (Negative) Salicylates (3.0-30) mg/dl Urine Opiates Screen (Neg) Ur Methadone, Qual (Neg) Acetaminophen (10-30) ug/ml Urine Barbiturates (Neg) Ur Phencyclidine (PCP) (Neg) U Amphetamin/Meth Scrn (Neg) MDMA (Ecstasy) Screen (Neg) U Benzodiazepines Scrn (Neg) Ur Cocaine Metabolite (Neg) U Marijuana (THC) Screen (Neg) Ethyl Alcohol mg/dL (<10.0) mg/dl 02/16/22 02/16/22 02/16/22 Range/Units 09:00 09:00 10:04 WBC (4.8-10.8) K/uL RBC (4.7-6.1) M/uL Hgb (14.0-18.0) g/dL Hct (42-52) % MCV (80-100) fL MCH (25-34) pg MCHC (32-36) g/dL RDW Std Deviation (36.4-46.3) fL RDW Coeff of Renetta (11.5-14.5) % Plt Count (130-400) K/uL MPV (7.4-10.4) fL Immature Gran % (Auto) % Neut % (Auto) % Lymph % (Auto) % [place] % (Auto) % Eos % (Auto) % Baso % (Auto) % Neut # (Auto) (1.4-6.5) K/uL Lymph # (Auto) (1.2-3.4) K/uL [place] # (Auto) (0.11-0.59) K/uL Eos # (Auto) (0-0.5) K/uL Baso # (Auto) (0-0.2) K/uL Immature Gran # (Auto) (0.00-0.02) K/uL Sodium (136-145) mmol/L Potassium (3.5-5.1) mmol/L Chloride (98-107) mmol/L Carbon Dioxide (21-32) mmol/L Anion Gap (3-11) BUN (6-23) mg/dl Creatinine (0.6-1.4) mg/dl Est Cr Clr Drug Dosing ml/min Est GFR ( Amer) ml/min Est GFR (Non-Af Amer) ml/min BUN/Creatinine Ratio (10-20) Glucose (70-99(Fasting)) mg/dl Calcium (8.5-10.1) mg/dl Total Bilirubin (0.2-1.0) mg/dl AST (13-39) U/L ALT (7-52) U/L Alkaline Phosphatase (34-104) U/L Total Protein (6.0-8.3) gm/dl Albumin (3.4-5.0) gm/dl Globulin (2.5-4.0) gm/dl Albumin/Globulin Ratio (0.9-2) TSH (0.300-4.500) uIu/ml Free T4 (0.61-1.60) ng/dl Urine Color Yellow Urine Appearance Clear (Clear) Urine pH 7.0 (4.5-7.5) Ur Specific [place] 1.010 (1.000-1.030) Urine Protein Negative (Negative) Urine Glucose (UA) Negative (Negative) Urine Ketones Negative (Negative) Urine Blood Negative (Negative) Urine Nitrite Negative (Negative) Urine Bilirubin Negative (Negative) Urine Urobilinogen Negative (Negative) Ur Leukocyte Esterase Negative (Negative) Salicylates < 3.0 L (3.0-30) mg/dl Urine Opiates Screen (Neg) Ur Methadone, Qual (Neg) Acetaminophen < 3 L (10-30) ug/ml Urine Barbiturates (Neg) Ur Phencyclidine (PCP) (Neg) U Amphetamin/Meth Scrn (Neg) MDMA (Ecstasy) Screen (Neg) U Benzodiazepines Scrn (Neg) Ur Cocaine Metabolite (Neg) U Marijuana (THC) Screen (Neg) Ethyl Alcohol mg/dL 82.1 H (<10.0) mg/dl 02/16/22 Range/Units 10:04 WBC (4.8-10.8) K/uL RBC (4.7-6.1) M/uL Hgb (14.0-18.0) g/dL Hct (42-52) % MCV (80-100) fL MCH (25-34) pg MCHC (32-36) g/dL RDW Std Deviation (36.4-46.3) fL RDW Coeff of Renetta (11.5-14.5) % Plt Count (130-400) K/uL MPV (7.4-10.4) fL Immature Gran % (Auto) % Neut % (Auto) % Lymph % (Auto) % [place] % (Auto) % Eos % (Auto) % Baso % (Auto) % Neut # (Auto) (1.4-6.5) K/uL Lymph # (Auto) (1.2-3.4) K/uL [place] # (Auto) (0.11-0.59) K/uL Eos # (Auto) (0-0.5) K/uL Baso # (Auto) (0-0.2) K/uL Immature Gran # (Auto) (0.00-0.02) K/uL Sodium (136-145) mmol/L Potassium (3.5-5.1) mmol/L Chloride (98-107) mmol/L Carbon Dioxide (21-32) mmol/L Anion Gap (3-11) BUN (6-23) mg/dl Creatinine (0.6-1.4) mg/dl Est Cr Clr Drug Dosing ml/min Est GFR ( Amer) ml/min Est GFR (Non-Af Amer) ml/min BUN/Creatinine Ratio (10-20) Glucose (70-99(Fasting)) mg/dl Calcium (8.5-10.1) mg/dl Total Bilirubin (0.2-1.0) mg/dl AST (13-39) U/L ALT (7-52) U/L Alkaline Phosphatase (34-104) U/L Total Protein (6.0-8.3) gm/dl Albumin (3.4-5.0) gm/dl Globulin (2.5-4.0) gm/dl Albumin/Globulin Ratio (0.9-2) TSH (0.300-4.500) uIu/ml Free T4 (0.61-1.60) ng/dl Urine Color Urine Appearance (Clear) Urine pH (4.5-7.5) Ur Specific [place] (1.000-1.030) Urine Protein (Negative) Urine Glucose (UA) (Negative) Urine Ketones (Negative) Urine Blood (Negative) Urine Nitrite (Negative) Urine Bilirubin (Negative) Urine Urobilinogen (Negative) Ur Leukocyte Esterase (Negative) Salicylates (3.0-30) mg/dl Urine Opiates Screen Neg (Neg) Ur Methadone, Qual Neg (Neg) Acetaminophen (10-30) ug/ml Urine Barbiturates Neg (Neg) Ur Phencyclidine (PCP) Neg (Neg) U Amphetamin/Meth Scrn Neg (Neg) MDMA (Ecstasy) Screen Neg (Neg) U Benzodiazepines Scrn Neg (Neg) Ur Cocaine Metabolite Neg (Neg) U Marijuana (THC) Screen Neg (Neg) Ethyl Alcohol mg/dL (<10.0) mg/dl MDM Narrative 56-year-old male presents for suicidal ideation. The patient called suicide hotline and police picked the patient up this morning. They found a note that said "Call police-suicide". The patient drinks alcohol daily and feels that he is going through alcohol withdrawal symptoms daily. He feels his only way out is to get adequate rest. The patient also feels that the birds are following him and they have been doing so for the last 10 years. The police district switchboard operator who brought the patient then mention this as the patient was talking about the birds following him and making too much noise and disturbing his life daily. The patient CBC chemistry panel was unremarkable. Free T4 was normal. Alcohol was 82. Patient was given some Ativan IV for his withdrawal symptoms. He will be seen by the hospitalist for further inpatient evaluation and care. Impression & Plan Alcohol withdrawal, Depression with suicidal ideation Discharge Plan Visit Data Chief Complaint: Mental Health Evaluation Stated Complaint: MHID ED Provider: Renny Cage Discharge Problem: Alcohol withdrawal, Depression with suicidal ideation Patient Disposition: Being Evaluated by Hospitalist Forms Stand Alone Forms: [facility], Suicide Prevention Resources Prescriptions Prescriptions: No Action thiamine HCl (vitamin B1) 100 mg tablet 100 mg PO DAILY RF: 0 melatonin 3 mg tablet 3 mg PO HS RF: 0 ascorbic acid (vitamin C) [Vitamin C] 500 mg Tablet 0 mg PO DAILY RF: 0 folic acid 1 mg tablet 1 mg PO QAM RF: 0 lisinopril 2.5 mg tablet 2.5 mg PO QAM RF: 0 Dialyvite 100-1 mg tablet 1 tab PO DAILY RF: 0 cholecalciferol (vitamin D3) [Vitamin D3] 25 mcg (1,000 unit) Tablet,Chewable 0 mcg PO DAILY RF: 0 Referrals Referrals: PCP,NO [Primary Care Provider] -
[2022-02-16 09:29] LABS: Basophils % (auto) 1.1 %; Eosinophils # (auto) 0.09 K/uL (0-0.5); Hematocrit (blood only) 46.6 % (42-52); Hemoglobin 16.3 g/dL (14.0-18.0); Immature Granulocytes # (auto) 0.11 K/uL (0.00-0.02); Immature Granulocytes % (auto) 1.2 %; Lymphocytes % (auto) 20.7 %; Mean Corpuscular Hemoglobin 31.5 pg (25-34); Mean Corpuscular Volume 90.1 fL (80-100); Mean Platelet Volume 9.5 fL (7.4-10.4); Monocytes # (auto) 0.75 K/uL (0.11-0.59); Monocytes % (auto) 8.2 %; Neutrophils # (auto) 6.25 K/uL (1.4-6.5); Neutrophils % (auto) 67.8 %; Platelet Count 261 K/uL (130-400); RDW Coefficient of Variation 13.8 % (11.5-14.5); RDW Standard Deviation 45.5 fL (36.4-46.3); Red Blood Count 5.17 M/uL (4.7-6.1)
[2022-02-16 09:37] LABS: Acetaminophen < 3 ug/ml (10-30); Albumin Globulin Ratio 1.5 (0.9-2); Albumin Level 4.8 gm/dl (3.4-5.0); BUN Creatinine Ratio 9.3 (10-20); Bilirubin,Total 0.6 mg/dl (0.2-1.0); Calcium 9.4 mg/dl (8.5-10.1); Creatinine Clr Calc Pharmacy 76.6 ml/min; Est GFR (African American) 102.2 ml/min; Est GFR (Non-African American) 88.1 ml/min; Globulin 3.3 gm/dl (2.5-4.0); Potassium 3.4 mmol/L (3.5-5.1); Salicylate < 3.0 mg/dl (3.0-30); Total Protein 8.1 gm/dl (6.0-8.3)
[2022-02-16 09:59] LABS: Thyroid Stimulating Hormone 5.104 uIu/ml (0.300-4.500)
[2022-02-16 10:25] LABS: Appearance Urine Clear (Clear); Bilirubin Urine Negative (Negative); Blood Urine Negative (Negative); Color Urine Yellow; Glucose Urine UA Negative (Negative); Ketones Urine Negative (Negative); Leukocyte Esterase Urine Negative (Negative); Nitrite Urine Negative (Negative); Protein Urine Negative (Negative); Urobilinogen Urine Negative (Negative)
[2022-02-16 10:32] LABS: T4 Free Thyroxine 0.89 ng/dl (0.61-1.60)
[2022-02-16 11:12] LABS: Amphetamines+Metham, Urine Neg (Neg); Barbiturates, Urine Neg (Neg); Benzodiazepine, Urine Neg (Neg); Cocaine, Urine Neg (Neg); MDMA (Ecstacy), Urine Neg (Neg); Methadone, Urine Neg (Neg); Opiate, Urine Neg (Neg); Phencyclidine, Urine Neg (Neg)
[2022-02-16] MEDS ORDERED: chlordiazePOXIDE ALCOHOL WITHDRAWL 50MG PO STA (11:26)
--- NOTE | 2022-02-16 11:37 | History & Physical Report ---
Date of Service February 16, 2022 Assessment & Plan (1) Alcohol withdrawal: (2) Alcohol abuse: (3) Suicidal ideation: (4) Paranoia: (5) Hypertension: Plan: Alcohol abuse with withdrawal- ongoing issue, multiple admissions for same, I had him during last admission, he was not willing to quit or go to rehab during last admission but this time he is thinking he might go to inpatient alcohol rehab to give him the best chance to detox and help get rid of alcohol. Will start on AWSS protocol, librium taper, with ativan prn; banana bag, folate, thiamine. CM to assist for alcohol rehab unless he changes his mind. Paranoia/?suicidal ideation- He called suicide hotline last night. He currently doesn't have any suicidal or homicidal ideations and I believe he is a low risk, however will have 1:1 until psych clearance, Psych evaluation. Vitamin B12 def- Was supplemented last time. Will recheck- if still low, will replete Hypertension- likely contributed by alcohol withdrawal but I believe he has a component of hypertension too. He is not taking his lisinopril- will resume. Insomnia- ongoing issue and one of the driving factors for him to consume alcohol. Continue melatonin and librium taper. Will need addition of something like trazodone once librium tapered. DVT prophylaxis- sc lovenox Dispo- PCU on tele Full code History of Present Illness Chief Complaint: alcohol withdrawal, paranoia Primary Care Provider: NO PCP 56 year old male with chronic alcohol abuse with multiple admissions for alcohol withdrawal last one being 01/02-01/06 followed by outpatient alcohol rehab clinic about a week ago for 4 days presented to the ED for detox. Since going home from the clinic, he felt his heart racing to 120 and thought it was from alcohol withdrawal and started drinking. He keeps a daily log of his alcohol intake. His alcohol intake varies as he says he is trying to reduce it. His last drink was hard liquor 200 cc of alcohol content last night between 10 pm and midnight. He thinks if he gets a good night sleep, then his body would be reset. He also called suicide hotline last night and had a written note pasted on his door that stated "suicide-call police" however he denies any suicidal or homicidal ideation. He states his alcohol issues have not been fixed despite multiple admissions and he has a $13K medical bill at home due to last admission- he states he is willing to pay that but would like a free treatment this time- states his reason to call the hotline was this but it was not helpfu l. Police did fill out a 302 petition. During my encounter, he was sitting in bed, widely awake, and on his laptop. He showed his daily alcohol log to me. He states that he wanted a free treatment this time. Also states that he would like to rest at night and not to be woken up. Also, reiterated that he doesn't have any plans for suicide. He states he only takes vitamin D and vitamin C pills at home and is asking for something stronger to help him sleep at night. He was hoping that he would be discharged tomorrow. Explained in detail about alcohol withdrawal and need for rehab to detox- he will think about inpatient rehab. Allergies Allergy/AdvReac Type Severity Reaction Status Date / Time No Known Allergies Allergy Unverified 01/02/22 14:33 Home Medications Medication Instructions Recorded Confirmed Type ascorbic acid (vitamin C) 500 mg 0 mg PO DAILY 01/02/22 02/16/22 History tablet (Vitamin C) cholecalciferol (vitamin D3) 25 0 mcg PO DAILY 01/02/22 02/16/22 History mcg (1,000 unit) chewable tablet (Vitamin D3) folic acid 1 mg tablet 1 mg PO QAM 01/02/22 02/16/22 History lisinopril 2.5 mg tablet 2.5 mg PO QAM 01/02/22 02/16/22 History melatonin 3 mg tablet 3 mg PO HS 01/02/22 02/16/22 History thiamine HCl (vitamin B1) 100 mg 100 mg PO DAILY 01/02/22 02/16/22 History tablet vitamin B complex-vitamin C 100 1 tab PO DAILY 01/02/22 02/16/22 History mg-folic acid 1 mg tablet (Dialyvite) Past Med/Surg History Medical History Abnormal blood electrolyte level Alcohol withdrawal syndrome Alcoholism Surgical History No pertinent past surgical history Social History Smoking Status: Never smoker Second Hand Exposure: No; Hx Alcohol Use: Yes Alcohol type: hard liquor Hx Substance Use: No Preferred Language: Belarusian Communication Ability: Effective Technical Training Specialist Required: No Beliefs That Will Affect Care: None marital status: Single Current Living Situation: Alone Feels Safe at Home: Yes Assistive Devices: None Review of Systems Review of Systems: All systems reviewed & are unremarkable except as noted in Subjective Physical Exam Physical Exam: General: Sitting comfortably in bed, not in distress, on room air HEENT: EOMI, MARÍA, MMM Chest: Clear breath sounds bilaterally, no wheezes or crackles CVS: Regular rate and rhythm, normal heart sounds, no murmur Abdomen: Soft, non tender, not distended, normal bowel sounds Neuro: Awake, alert, oriented, conversing well, non focal Extremities: No cyanosis, clubbing or edema Results & Data Results & Data ([facility]) Vital Signs (Past 12 Hours) Vital Signs Temp Pulse Pulse Resp BP BP Pulse Ox 02/16/22 09:00 83 20 192/101 H 98 02/16/22 08:01 36.9 C 112 H 20 181/133 H 98 Laboratory Results Short CBC 02/16/22 Range/Units 09:00 WBC 9.20 (4.8-10.8) K/uL Hgb 16.3 (14.0-18.0) g/dL Hct 46.6 (42-52) % Plt Count 261 (130-400) K/uL BMP 02/16/22 09:00 Sodium 137 Potassium 3.4 L Chloride 98 Carbon Dioxide 26 BUN 9 Creatinine 0.97 Glucose 93 Calcium 9.4 Liver Function 02/16/22 Range/Units 09:00 Total Bilirubin 0.6 (0.2-1.0) mg/dl AST 20 (13-39) U/L ALT 17 (7-52) U/L Alkaline Phosphatase 65 (34-104) U/L Albumin 4.8 (3.4-5.0) gm/dl Urine 02/16/22 Range/Units 10:04 Urine Color Yellow Urine Appearance Clear (Clear) Urine pH 7.0 (4.5-7.5) Ur Specific [place] 1.010 (1.000-1.030) Urine Protein Negative (Negative) Urine Glucose (UA) Negative (Negative) Code Status & VTE Plan VTE Prophylaxis Plan VTE Prophylaxis will be ordered: Yes (1) Hypertension Hypertension type: unspecified Qualified Code(s): I10 - Essential (primary) hypertension
[2022-02-16] MEDS: lisinopril 2.5 MG TAB PO SCH (12:12)
--- NOTE | 2022-02-16 13:56 | Psychiatric Consultation ---
Date of Consultation February 16, 2022 Impression / Recommendations Impression This is a 56 yo admitted medically for alcohol withdrawal on a 302 warrant after making statements of SI with plan to shoot himself to the [place] crisis line and putting a suicide note on his door. He continues to lack insight into these severity of these actions and why others find this concerning and does not express any regret nor reasons why he would not act on such thoughts such they reoccur in the future. Additionally concerning is his odd belief structure surrounding his alcohol use as he lacks insight into why he experiences alcohol withdrawal, how it contributes to disinhibition and insomnia and continues to decline any treatments for substance use and depression. Diagnostically consistent with a combination of MDD and alcohol-induced depression as well as likely schizotypal PD vs schizoid PD vs primary psychotic disorder vs ASD and possible OCD vs OCPD. Delusions and paranoia less likely to be substance-induced as these have been consistently present throughout his recent hospitalizations even toward the end of his stays when he was outside of the acute withdrawal period. Acute risk of self-harm remains elevated and high given suicidal statements with note, which constitutes an act of furtherance per [place] mental health laws, as well as recent access to gun (and desire to get a gun again), ongoing minimal insight, depression, social isolation, lack of outpatient providers, alcohol use, hopelessness, unwillingness to seek treatment and periods of high psychic distress. Given elevated risk of harm to self he will likely meet criteria for inpatient psychiatric care for diagnostic clarification, safety/stabilization, development of additional coping skills, medication management and disposition/safety planning once medically stable. If they do not agree to voluntary treatment at that time he will meet criteria for 302 status based on severity of suicidal statements with note and ongoing modifiable risk factors. (1) Depression with suicidal ideation: (2) Alcohol withdrawal: (3) Delusions: -Continue 1-on-1 for risk of harm to self -Do not discharge or allow to leave AMA, he is on a 302 warrant -Consider olanzapine 2.5 mg qhs to help with insomnia and delusions if he becomes agreeable -Once medically cleared plan for psychiatric hospitalization (either 201 or 302 status) vs dual diagnosis substance use treatment. Risk Factors Assessment Male: Yes : Yes Do You Have Access To A Gun?: No (police removed from home last night after 302 warrant ) Health Problems: No Mental Health Diagnoses: Yes Substance Use Disorders: Yes Previous Attempt: No Family History of Suicide: No Previous Psychiatric Hospitalization: No Hopelessness: Yes Smoker: No Protective Factors Assessment : No Employed: No Stable Relationships: No Supportive Family: No Good Rapport with Provider: No Psych History Identifying Data 56 yo man with history of alcohol use disorder, suspected schizoid vs schizotypal PD, OCD vs OCPD traits and history of previous statements of SI presented via police after reporting SI to crisis line and was admitted medically for alcohol withdrawal. Psychiatry consulted for risk assessment and recommendations. Chief Complaint "I'm in a latched state, that's the only way to describe it". History of Present Illness Xander is known to our service from his recent hospitalizations in December and January 2022 for alcohol withdrawal. During his admission in December 2021 he made a statement of "fleeting suicidal thoughts of blowing his head because he has had a terrible life" but minimized this during psychiatric assessments and consistently denied SI and declined any psychiatric services or outpatient follow-up. Similarly in January 2022 during his medical admission he refused any psychiatric nor substance use treatment nor services. Apparently he has continued drinking alcohol since his last discharge in early January 2022 and continues to struggle with insomnia. Last night he called the [place] crisis line, states he did this by accident thinking he was calling a "[facility] crisis line", and told them he was planning to by suicide. He also placed a note on his door stating "call police-suicide". When asked about why he wrote the note and put it on his door he states "that was just so my body could be found if I did the deed that I didn't have the guts to do". He agrees that he had a gun in the home but that police confiscated this when they arrived and brought him to the ED on a 302 warrant. He notes his plan to "get back my gun" once he is discharged from the hospital. 302 petition completed by police matron reads: Xander told the [place] Crisis that he was going to drink until he gets drunk enough and then shoot himself. He left a note on the door that said Call police- suicide . Xander is now denying SI but lacks insight into the events of last night and why we are concerned about his safety. He expresses no regretfulness regarding last nights events but rather is frustrated that he was brought to the ED and annoyed that he will be billed for hospital services. Notes he is "glum I'm here involuntarily". 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 He endorses ongoing difficulty with sleep and states he was trying to taper his alcohol use but couldn't fall asleep and then felt suicidal. He notes he is still being bothered by birds when asked about this but states he is no longer staying up all night as this sleep shift schedule did not work well and worsening his insomnia. Feels he does not have an alcohol use problem but rather that he has an "alcohol withdrawal condition" that is unique and due to "a condition my brain and body gets into that's a latched state". States frustration that during his previous medical admission they were unable to "repair me" from this alcohol condition. When we discuss my concern about his suicidal statements, note and need for psychiatric treatment he states "psychiatric treatment is ridiculous" and declines offers to consider starting psychiatric medication to help with insomnia and alcohol use. Past Psychiatric History Outpatient Services: none Previous Psych Admissions: none Do You Have Access To A Gun?: No (police removed from home last night after 302 warrant ) History of Previous Suicide Attempt: No Past Medication Trials: denies any Allergies Allergy/AdvReac Type Severity Reaction Status Date / Time No Known Allergies Allergy Unverified 01/02/22 14:33 Home Medications Medication Instructions Recorded Confirmed Type ascorbic acid (vitamin C) 500 mg 0 mg PO DAILY 01/02/22 02/16/22 History tablet (Vitamin C) cholecalciferol (vitamin D3) 25 0 mcg PO DAILY 01/02/22 02/16/22 History mcg (1,000 unit) chewable tablet (Vitamin D3) folic acid 1 mg tablet 1 mg PO QAM 01/02/22 02/16/22 History lisinopril 2.5 mg tablet 2.5 mg PO QAM 01/02/22 02/16/22 History melatonin 3 mg tablet 3 mg PO HS 01/02/22 02/16/22 History thiamine HCl (vitamin B1) 100 mg 100 mg PO DAILY 01/02/22 02/16/22 History tablet vitamin B complex-vitamin C 100 1 tab PO DAILY 01/02/22 02/16/22 History mg-folic acid 1 mg tablet (Dialyvite) Family History none known Substance Abuse History significant alcohol use, denies all others Personal History Living Arrangements: Home (alone) Highest Grade Completed: 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) Employment Status: Unemployed (hasn't worked in many years, lives off an inheritance) Marital Status: Single Beliefs That Will Affect Care: None History of Legal Problems: denies Psychological Trauma History Comment: denies Patient History Medical History Abnormal blood electrolyte level Alcohol withdrawal syndrome Alcoholism Surgical History No pertinent past surgical history Social History Smoking Status: Never smoker Second Hand Exposure: No; Hx Alcohol Use: Yes Alcohol type: hard liquor Hx Substance Use: No Preferred Language: Polish Communication Ability: Effective Renewal Specialist Required: No Beliefs That Will Affect Care: None marital status: Single Current Living Situation: Alone Feels Safe at Home: Yes Assistive Devices: None Physical Exam Psychiatric: Orientation: alert and oriented x 3 Apperance: appropriately dressed and appropriately groomed Eye Contact: + fair eye contact Motor Behavior: no abnormal motor movements Speech: + abnormal rate/rhythm/volume of speech (monotone ) Affect: + flat affect Mood: + irritable mood Thought Process: + concrete thought process Thought Content: + delusions Suicidal Thoughts: denies suicidal intent; + reports suicidal thoughts (had writ ten note and called crisis reporting SI with plan to shoot himself ) and + reports suicidal plan Homicidal Thoughts: denies homicidal thoughts Hallucinations: no auditory hallucinations and no visual hallucinations Cognition: recent memory grossly intact, remote memory grossly intact, attention grossly intact and language grossly intact Estimated Intelligence: consistent with education level Insight: + limited insight Judgement: + limited judgement Vital Signs (Past 24 Hours): Last Vital Signs Temp 37.6 C H 02/16/22 11:31 Pulse 88 02/16/22 11:31 Resp 18 02/16/22 11:31 BP 164/101 H 02/16/22 11:31 Pulse Ox 95 02/16/22 11:31 Review of Systems All systems reviewed & are unremarkable except as noted in HPI & below Results & Data ([facility]) Medications Administered Lisinopril (Lisinopril 2.5 Mg Tab) 10 mg PO QAM HARIS Stop: 03/18/22 11:29 Last Admin: 02/16/22 12:12 Dose: 10 mg Documented by: [id number] Coding Level of Care Code 88119 Inpt Consult Level 3 Diagnoses Alcohol withdrawal F10.239 Depression with suicidal ideation F32.A; R45.851 Delusions F22 Time Spent (min) 30
[2022-02-16] MEDS ORDERED: ATIVAN IV ALCOHOL WITHDRAWL IV PRN (14:53)
[2022-02-16] MEDS ORDERED: LORazepam 2 MG/1 ML VIAL IV PRN ×2 (14:53)
[2022-02-16] MEDS ORDERED: MELATONIN 3 MG TAB PO PRN (14:53)
[2022-02-16] MEDS ORDERED: MULTI-VITAMIN INFUSION 10 ML, THIAMINE HCL 100 MG, FOLIC ACID 1 MG in SODIUM CHLORIDE 0... IV ONE (15:30)
[2022-02-16] MEDS: THIAMINE HCL 100 MG TAB PO SCH (16:10)
[2022-02-16] MEDS: FOLIC ACID 1 MG TAB PO SCH (16:10)
[2022-02-16] MEDS: chlordiazePOXIDE HCl 25 MG CAP PO SCH ×2 (16:14→21:05)
[2022-02-16] MEDS ORDERED: POTASSIUM CHLORIDE CRTAB 20 MEQ TABCR PO ONE (17:27)
[2022-02-16] MEDS: D5W AND 1/2NSS 1,000 ML IV SCH (17:46)
[2022-02-16] MEDS: ENOXAPARIN INJ 40 MG/0.4 ML SYR SQ SCH (20:31)
[2022-02-17] MEDS: D5W AND 1/2NSS 1,000 ML IV SCH ×2 (03:51→13:47)
[2022-02-17] MEDS: LORazepam 2 MG/1 ML VIAL IV PRN (03:51)
[2022-02-17] MEDS: chlordiazePOXIDE HCl 25 MG CAP PO SCH ×3 (03:52→18:08)
[2022-02-17] MEDS: THIAMINE HCL 100 MG TAB PO SCH (08:32)
[2022-02-17] MEDS: FOLIC ACID 1 MG TAB PO SCH (08:32)
[2022-02-17] MEDS: lisinopril 2.5 MG TAB PO SCH (08:32)
--- NOTE | 2022-02-17 13:14 | Psychiatric Progress Note ---
Date of Service February 17, 2022 Impression / Recommendations Impression This is a 56 yo admitted medically for alcohol withdrawal on a 302 warrant after making statements of SI with plan to shoot himself to the [place] crisis line and putting a suicide note on his door. Today showing significant improvement in insight and now acknowledging he has a problem with alcohol and wants to get treatment for this. Denying SI and noting some improvement in mood today. Continues to be at elevated acute risk of harm to self given SI and note prior to admission but encouraging that with no alcohol use since admission his mood is improving and he is motivated to seek substance use treatment. Also no evidence for delusions or paranoia today or odd beliefs. Diagnostically consistent with a combination of MDD and alcohol-induced depression. Reviewed recommendation that he not have guns in the home due to history of SI while drinking. He states he may desire having a gun again in the future as he feels due to living alone he needs a firearm for self-protection should someone attempt to carrie his home. Acute risk of self-harm remains elevated and moderate given suicidal statements with note, which constitutes an act of furtherance per [place] mental health laws, as well as recent access to gun, but with improving insight and his willingness to seek treatment for alcohol use which is his most significant modifiable risk factor. Agree with residential alcohol use treatment, if he is not felt to be appropriate then would likely require inpatient psychiatric treatment. (1) Alcohol use disorder: (2) Alcohol withdrawal: (3) Depression with suicidal ideation: -Continue 1-on-1 for risk of harm to self -Do not discharge or allow to leave AMA, he is on a 302 warrant -Consider olanzapine 2.5 mg qhs prn or trazodone 50mg qhs prn to help with insomnia if he becomes agreeable -Once medically cleared plan for residential substance use treatment or psychiatric hospitalization (either 201 or 302 status) Risk Factors Assessment Male: Yes : Yes Do You Have Access To A Gun?: No (police removed from home last night after 302 warrant ) Health Problems: No Mental Health Diagnoses: Yes Substance Use Disorders: Yes Previous Attempt: No Family History of Suicide: No Previous Psychiatric Hospitalization: No Hopelessness: Yes Protective Factors Assessment : No Employed: No Stable Relationships: No Supportive Family: No Good Rapport with Provider: No Interval History Identifying Information 56 yo man with history of alcohol use disorder, suspected schizoid vs schizotypal PD, OCD vs OCPD traits and history of previous statements of SI presented via police after reporting SI to crisis line and was admitted medically for alcohol withdrawal. Psychiatry consulted for risk assessment and recommendations. Chief Complaint "I'm going to quit with the alcohol". Review of Systems Notes see subjective Subjective Subjective Patient was seen & assessed and interval progress reviewed. Today Xander continues to deny current SI stating "I'm not suicidal I was only being caught in a trap because of the alcohol". Today he has shifted in his willingness to acknowledge his problematic alcohol use stating "I'm going to quit with the alcohol" and becoming reflective and close to tears stating that he cannot continue with alcohol without it ruining his life and noting that "I never want to end up in this kind of situation again". He is very hopeful he will be accepted at a residential substance use facility as he feels this will be helpful and allow him to get on a long-term path of sobriety. States he received residential tx once before at [facility] in the past. States he slept well last night. Appetite is stable. States physically he's feeling much better today. Denies any depression today. Wants to get back into exercising again and hopes this will be easier as he becomes sober. Physical Exam Psychiatric Orientation: alert and oriented x 3 Apperance: appropriately dressed and appropriately groomed Eye Contact: good eye contact Motor Behavior: no abnormal motor movements Speech: normal rate/rhythm/volume of speech (monotone ) Affect: mood congruent with affect Mood: no depressed mood and no anxious mood Thought Process: linear/logical thought process Thought Content: reality based without delusions Suicidal Thoughts: denies suicidal thoughts Homicidal Thoughts: denies homicidal thoughts Hallucinations: no auditory hallucinations and no visual hallucinations Cognition: recent memory grossly intact, remote memory grossly intact, attention grossly intact and language grossly intact Estimated Intelligence: consistent with education level Insight: + limited insight Judgement: + limited judgement Vital Signs (Past 24 Hours) Last Vital Signs Temp 36.8 C 02/17/22 10:43 Pulse 68 02/17/22 10:43 Resp 16 02/17/22 10:43 BP 146/93 H 02/17/22 10:43 Pulse Ox 96 02/17/22 10:43 Results & Data ([facility]) Current Inpatient Medications Current Inpatient Medications: Current Inpatient Medications Chlordiazepoxide HCl (Chlordiazepoxide Hcl 25 Mg Cap) 50 mg PO Q6H [facility]; Taper Stop: 02/19/22 15:59 Last Admin: 02/17/22 10:32 Dose: 50 mg Documented by: Chlordiazepoxide HCl (Chlordiazepoxide Hcl 10 Mg Cap) 10 mg PO Q12H [facility] Stop: 02/20/22 04:01 Enoxaparin Sodium (Enoxaparin Inj 40 Mg/0.4 Ml Syr) 40 mg SQ Q24H [facility] Stop: 03/18/22 14:52 Last Admin: 02/16/22 20:31 Dose: 40 mg Documented by: Folic Acid (Folic Acid 1 Mg Tab) 1 mg PO QAM [facility] Stop: 03/18/22 14:52 Last Admin: 02/17/22 08:32 Dose: 1 mg Documented by: Dextrose/Sodium Chloride (D5w And 1/2nss) 1,000 mls @ 100 mls/hr IV .Q10H [facility] Stop: 02/17/22 14:52 Last Admin: 02/17/22 03:51 Dose: 100 mls/hr Documented by: Lisinopril (Lisinopril 2.5 Mg Tab) 10 mg PO QAM [facility] Stop: 03/18/22 11:29 Last Admin: 02/17/22 08:32 Dose: 10 mg Documented by: Lorazepam (Lorazepam 2 Mg/1 Ml Vial) 1 mg IV UD PRN; Protocol PRN Reason: EtOH Withdrawl AWSS Score 6,7 Stop: 03/18/22 14:52 Last Admin: 02/17/22 03:51 Dose: 1 mg Documented by: Lorazepam (Lorazepam 2 Mg/1 Ml Vial) 2 mg IV UD PRN; Protocol PRN Reason: EtOH Withdrawl AWSS Score 8,9 Stop: 03/18/22 14:52 Lorazepam (Lorazepam 2 Mg/1 Ml Vial) 3 mg IV ONCE PRN; Protocol PRN Reason: EtOH Withdrawl AWSS Score >=10 Stop: 03/18/22 14:52 Melatonin (Melatonin 3 Mg Tab) 9 mg PO HS PRN PRN Reason: sleep Stop: 03/18/22 14:52 Last Admin: 02/16/22 21:05 Dose: 9 mg Documented by: Thiamine HCl (Thiamine Hcl 100 Mg Tab) 100 mg PO DAILY [facility] Stop: 03/18/22 14:52 Last Admin: 02/17/22 08:32 Dose: 100 mg Documented by:
--- NOTE | 2022-02-17 19:29 | Hospitalist Progress Note ---
Date of Service February 17, 2022 Assessment & Plan (1) Alcohol withdrawal: (2) Alcohol abuse: (3) Suicidal ideation: (4) Paranoia: (5) Hypertension: Plan: 56 yrs old with PMH of alcohol abuse, depression, hypertension, anxiety was brought to the hospital by police after making suicidal statement note. Alcohol abuse Alcohol withdrawal Alcohol level on admission 82 History of alcohol withdrawal and DT in the past Continue Librium with alcohol withdrawal protocol Continue thiamine and folic acid Counseling on alcohol cessation Patient agreed to go to alcohol inpatient rehab treatment Continue monitor for sign of alcohol withdrawal Depression suicidal ideation He called suicide hotline and making suicidal statement with note Continue one-to-one observation Psych on board Patient cannot sign AGAINST MEDICAL ADVICE, he is on a 302 warrant Once medically stable he will need inpatient psych treatment or go to inpatient alcohol rehab go to inpatient therapy Continue monitor closely Insomnia Patient said the Librium will help him to sleep Consider to add olanzapine 2.5 mg or trazodone 50 mg at bedtime Hypertension Noncompliant with lisinopril BP stable DVT prophylaxis- sc lovenox Disposition Patient cannot sign AMA Full code Admission and Anticipated Discharge Date Admission Date: February 16, 2022 Subjective Patient was seen and evaluated for follow-up of suicidal ideation Sitting in bed with no acute respiratory distress When I entered the room patient was on the floor doing push-ups Patient said that he feels fine He denies any suicidal ideation He said he was brought to the hospital against his will He agreed to go to alcohol inpatient rehab for treatment but he will not go to for inpatient mental health treatment Denies any chest pain, palpitation, dizziness, shortness of breath. Review of Systems Review of Systems: All systems reviewed & are unremarkable except as noted in Subjective Physical Exam Physical Exam: General- No acute distress Head- atraumatic Eyes- PERRL, EOMI, ENT- oropharynx clear Neck- supple, no JVD Lungs- clear to auscultation Heart- regular rhythm; no murmur Abdomen- normal bowel sounds, soft, nontender Extremities- no calf tenderness Neuro- alert, oriented x 3; PERRL, EOMI; no facial palsy; no dysarthria Skin- warm & dry Results & Data Results & Data ([facility]) Vital Signs (Past 12 Hours) Vital Signs Temp Pulse Resp BP Pulse Ox 02/17/22 14:50 36.3 C L 70 19 125/85 96 02/17/22 10:43 36.8 C 68 16 146/93 H 96 (1) Hypertension Hypertension type: unspecified Qualified Code(s): I10 - Essential (primary) hypertension
[2022-02-17] MEDS: ENOXAPARIN INJ 40 MG/0.4 ML SYR SQ SCH (20:46)
[2022-02-18] MEDS: chlordiazePOXIDE HCl 25 MG CAP PO SCH ×3 (00:51→17:21)
[2022-02-18] MEDS ORDERED: traZODone HCL 50 MG TAB PO ONE (02:37)
[2022-02-18] MEDS: FOLIC ACID 1 MG TAB PO SCH (08:22)
[2022-02-18] MEDS: THIAMINE HCL 100 MG TAB PO SCH (08:22)
[2022-02-18] MEDS: lisinopril 2.5 MG TAB PO SCH (08:22)
[2022-02-18 08:51] LABS: Albumin Globulin Ratio 1.4 (0.9-2); Albumin Level 3.8 gm/dl (3.4-5.0); Bilirubin,Total 0.7 mg/dl (0.2-1.0); Creatinine Clr Calc Pharmacy 81.6 ml/min; Est GFR (African American) 111.8 ml/min; Est GFR (Non-African American) 96.5 ml/min; Globulin 2.7 gm/dl (2.5-4.0); Phosphorus 3.7 mg/dl (2.5-4.9); Potassium 4.3 mmol/L (3.5-5.1); Total Protein 6.5 gm/dl (6.0-8.3)
[2022-02-18] MEDS: LORazepam 2 MG/1 ML VIAL IV PRN (14:35)
--- NOTE | 2022-02-18 15:06 | Psychiatric Progress Note ---
Date of Service February 18, 2022 Impression / Recommendations Impression This is a 56 yo admitted medically for alcohol withdrawal on a 302 warrant after making statements of SI with plan to shoot himself to the [place] crisis line and putting a suicide note on his door. Today showing significant improvement in insight and now acknowledging he has a problem with alcohol and wants to get treatment for this. Denying SI and noting some improvement in mood today. Continues to be at elevated acute risk of harm to self given SI and note prior to admission but encouraging that with no alcohol use since admission his mood is improving and he is motivated to seek substance use treatment. Also no evidence for delusions or paranoia today or odd beliefs. Diagnostically consistent with a combination of MDD and alcohol-induced depression. Reviewed recommendation that he not have guns in the home due to history of SI while drinking. He states he may desire having a gun again in the future as he feels due to living alone he needs a firearm for self-protection should someone attempt to carrie his home. Acute risk of self-harm remains elevated and moderate to high given suicidal statements with note, which constitutes an act of furtherance per [place] mental health laws, as well as recent access to gun, and variably insight into his alcohol use. Alcohol use which is his most significant modifiable risk factor. Agree with residential alcohol use treatment, if he is not felt to be appropriate then would likely require inpatient psychiatric treatment. 02/18/22: Will stop trazodone and start olanzapine 2.5 mg qhs to help with insomnia and some odd beliefs. (1) Alcohol use disorder: (2) Alcohol withdrawal: (3) Depression with suicidal ideation: -Continue 1-on-1 for risk of harm to self -Do not discharge or allow to leave AMA, he is on a 302 warrant -Consider olanzapine 2.5 mg qhs prn or trazodone 50mg qhs prn to help with insomnia if he becomes agreeable -Once medically cleared plan for residential substance use treatment or psychiatric hospitalization (either 201 or 302 status) Risk Factors Assessment Male: Yes : Yes Do You Have Access To A Gun?: No (police removed from home last night after 302 warrant ) Health Problems: No Mental Health Diagnoses: Yes Substance Use Disorders: Yes Previous Attempt: No Family History of Suicide: No Previous Psychiatric Hospitalization: No Hopelessness: Yes Protective Factors Assessment : No Employed: No Stable Relationships: No Supportive Family: No Good Rapport with Provider: No Interval History Identifying Information 56 yo man with history of alcohol use disorder, suspected schizoid vs schizotypal PD, OCD vs OCPD traits and history of previous statements of SI presented via police after reporting SI to crisis line and was admitted medically for alcohol withdrawal. Psychiatry consulted for risk assessment and recommendations. Chief Complaint "I do not have cravings for alcohol". Review of Systems Notes difficulty with sleep, stable appetite Subjective Subjective Patient was seen & assessed and interval progress reviewed. Xnader met with [facility] representative this morning and he doesn't like the idea of alcohol residential treatment being possibly for 28 days stating that now "I'm warming to the idea of psychiatric inpatient treatment because it would probably be shorter". He denies SI again today and states he believes he can remain sober from alcohol if he gets help with his insomnia. Tried trazodone last night for insomnia which he felt didn't do enough. Again speaks to his belief that his brain is a "binary system" and that he develops alcohol withdrawals due to lack of sleep citing a cup of tea as most recent inciting factor for alcohol withdrawal. Reiterated that he is socially isolated and estranged from family. Described that his days are "highly regimented". he denied any history of ASD. 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 Physical Exam Psychiatric Orientation: alert and oriented x 3 Apperance: appropriately dressed and appropriately groomed Eye Contact: + fair eye contact Motor Behavior: no abnormal motor movements Speech: normal rate/rhythm/volume of speech (monotone ) Affect: + flat affect Mood: + irritable mood Thought Process: linear/logical thought process and + concrete thought process Thought Content: reality based without delusions Suicidal Thoughts: denies suicidal thoughts Homicidal Thoughts: denies homicidal thoughts Hallucinations: no auditory hallucinations and no visual hallucinations Cognition: recent memory grossly intact, remote memory grossly intact, attention grossly intact and language grossly intact Estimated Intelligence: consistent with education level Insight: + limited insight Judgement: + limited judgement Vital Signs (Past 24 Hours) Last Vital Signs Temp 36.8 C 02/18/22 06:55 Pulse 71 02/18/22 13:18 Resp 18 02/18/22 13:18 BP 147/98 H 02/18/22 13:18 Pulse Ox 96 02/18/22 13:18 Results & Data ([facility]) Laboratory Results Laboratory Results - last 24 hr 02/18/22 02/18/22 07:42 07:42 Sodium 137 Potassium 4.3 D Chloride 103 Carbon Dioxide 30 Anion Gap 4 BUN 9 Creatinine 0.90 Est Cr Clr Drug Dosing 81.6 Est GFR ( Amer) 111.8 Est GFR (Non-Af Amer) 96.5 BUN/Creatinine Ratio 10.0 Glucose 87 Calcium 9.0 Phosphorus 3.7 Magnesium 2.0 Total Bilirubin 0.7 AST 15 ALT 12 Alkaline Phosphatase 54 Total Protein 6.5 Albumin 3.8 Globulin 2.7 Albumin/Globulin Ratio 1.4 Vitamin B12 178 L Current Inpatient Medications Current Inpatient Medications: Current Inpatient Medications Chlordiazepoxide HCl (Chlordiazepoxide Hcl 25 Mg Cap) 50 mg PO Q8H HARIS; Taper Stop: 02/19/22 15:59 Last Admin: 02/18/22 08:22 Dose: 50 mg Documented by: Chlordiazepoxide HCl (Chlordiazepoxide Hcl 10 Mg Cap) 10 mg PO Q12H [facility] Stop: 02/20/22 04:01 Cyanocobalamin (Cyanocobalamin (B-12) 100 Mcg Tablet) 100 mcg PO [facility] Stop: 03/20/22 14:59 Enoxaparin Sodium (Enoxaparin Inj 40 Mg/0.4 Ml Syr) 40 mg SQ Q24H [facility] Stop: 03/18/22 14:52 Last Admin: 02/17/22 20:46 Dose: 40 mg Documented by: Folic Acid (Folic Acid 1 Mg Tab) 1 mg PO [facility] Stop: 03/18/22 14:52 Last Admin: 02/18/22 08:22 Dose: 1 mg Documented by: Lisinopril (Lisinopril 2.5 Mg Tab) 10 mg PO [facility] Stop: 03/18/22 11:29 Last Admin: 02/18/22 08:22 Dose: 10 mg Documented by: Lorazepam (Lorazepam 2 Mg/1 Ml Vial) 1 mg IV UD PRN; Protocol PRN Reason: EtOH Withdrawl AWSS Score 6,7 Stop: 03/18/22 14:52 Last Admin: 02/18/22 14:35 Dose: 1 mg Documented by: Lorazepam (Lorazepam 2 Mg/1 Ml Vial) 2 mg IV UD PRN; Protocol PRN Reason: EtOH Withdrawl AWSS Score 8,9 Stop: 03/18/22 14:52 Lorazepam (Lorazepam 2 Mg/1 Ml Vial) 3 mg IV ONCE PRN; Protocol PRN Reason: EtOH Withdrawl AWSS Score >=10 Stop: 03/18/22 14:52 Melatonin (Melatonin 3 Mg Tab) 9 mg PO HS PRN PRN Reason: sleep Stop: 03/18/22 14:52 Last Admin: 02/16/22 21:05 Dose: 9 mg Documented by: Thiamine HCl (Thiamine Hcl 100 Mg Tab) 100 mg PO DAILY [facility] Stop: 03/18/22 14:52 Last Admin: 02/18/22 08:22 Dose: 100 mg Documented by:
[2022-02-18] MEDS: CYANOCOBALAMIN (B-12) 100 MCG TABLET PO SCH (17:22)
[2022-02-18] MEDS ORDERED: OLANZAPINE 2.5 MG TAB PO SCH (21:00)
[2022-02-18] MEDS: ENOXAPARIN INJ 40 MG/0.4 ML SYR SQ SCH (21:34)
--- NOTE | 2022-02-18 23:59 | Hospitalist Progress Note ---
Date of Service February 18, 2022 Assessment & Plan (1) Alcohol withdrawal: (2) Alcohol abuse: (3) Suicidal ideation: (4) Paranoia: (5) Hypertension: Plan: 56 yrs old with PMH of alcohol abuse, depression, hypertension, anxiety was brought to the hospital by police after making suicidal statement note. Alcohol abuse Alcohol withdrawal Alcohol level on admission 82 History of alcohol withdrawal and DT in the past Continue Librium with alcohol withdrawal protocol Continue thiamine and folic acid Counseling on alcohol cessation Patient agreed to go to alcohol inpatient rehab treatment Continue monitor for sign of alcohol withdrawal Depression suicidal ideation He called suicide hotline and making suicidal statement with note Continue one-to-one observation Psych on board Patient cannot sign AGAINST MEDICAL ADVICE, he is on a 302 warrant Once medically stable he will need inpatient psych treatment or go to inpatient alcohol rehab go to inpatient therapy Continue monitor closely Insomnia Patient said the Librium will help him to sleep Olanzapine 2.5 mg adding Hypertension Noncompliant with lisinopril BP stable DVT prophylaxis- sc lovenox Disposition Patient cannot sign AMA Full code Admission and Anticipated Discharge Date Admission Date: February 16, 2022 Subjective Patient was seen and evaluated for follow-up of suicidal ideation Lying in bed with no acute distress with one to one sitter He denies any suicidal ideation He said that the state asked too many document to cover for the financial cost of the rehab He said that he would not go to the alcohol rehab therapy Denies any chest pain, palpitation, dizziness, shortness of breath. Review of Systems 2 Review of Systems: All systems reviewed & are unremarkable except as noted in Subjective Physical Exam Physical Exam: General- No acute distress Head- atraumatic Eyes- PERRL, EOMI, ENT- oropharynx clear Neck- supple, no JVD Lungs- clear to auscultation Heart- regular rhythm; no murmur Abdomen- normal bowel sounds, soft, nontender Extremities- no calf tenderness Neuro- alert, oriented x 3; PERRL, EOMI; no facial palsy; no dysarthria Skin- warm & dry Results & Data Results & Data ([facility]) Vital Signs (Past 12 Hours) Vital Signs Temp Pulse Resp BP Pulse Ox 02/18/22 19:06 36.7 C 73 19 114/66 96 02/18/22 13:18 71 18 147/98 H 96 (1) Hypertension Hypertension type: unspecified Qualified Code(s): I10 - Essential (primary) hypertension
[2022-02-19] MEDS: chlordiazePOXIDE HCl 25 MG CAP PO SCH ×2 (00:02→08:04)
[2022-02-19] MEDS: lisinopril 2.5 MG TAB PO SCH (08:04)
[2022-02-19] MEDS: THIAMINE HCL 100 MG TAB PO SCH (08:05)
[2022-02-19] MEDS: FOLIC ACID 1 MG TAB PO SCH (08:05)
[2022-02-19] MEDS: CYANOCOBALAMIN (B-12) 100 MCG TABLET PO SCH (08:05)
--- NOTE | 2022-02-19 11:00 | Discharge Summary ---
Date of Service February 19, 2022 Admission HPI Per Admitting Provider 56 year old male with chronic alcohol abuse with multiple admissions for alcohol withdrawal last one being 01/02-01/06 followed by outpatient alcohol rehab clinic about a week ago for 4 days presented to the ED for detox. Since going home from the clinic, he felt his heart racing to 120 and thought it was from alcohol withdrawal and started drinking. He keeps a daily log of his alcohol intake. His alcohol intake varies as he says he is trying to reduce it. His last drink was hard liquor 200 cc of alcohol content last night between 10 pm and midnight. He thinks if he gets a good night sleep, then his body would be reset. He also called suicide hotline last night and had a written note pasted on his door that stated "suicide-call police" however he denies any suicidal or homicidal ideation. He states his alcohol issues have not been fixed despite multiple admissions and he has a $13K medical bill at home due to last admission- he states he is willing to pay that but would like a free treatment this time- states his reason to call the hotline was this but it was not helpful. Police did fill out a 302 petition. During my encounter, he was sitting in bed, widely awake, and on his laptop. He showed his daily alcohol log to me. He states that he wanted a free treatment this time. Also states that he would like to rest at night and not to be woken up. Also, reiterated that he doesn't have any plans for suicide. He states he only takes vitamin D and vitamin C pills at home and is asking for something stronger to help him sleep at night. He was hoping that he would be discharged tomorrow. Explained in detail about alcohol withdrawal and need for rehab to detox- he will think about inpatient rehab. Admission Exam Per Admitting Provider General: Sitting comfortably in bed, not in distress, on room air HEENT: EOMI, MARÍA, MMM Chest: Clear breath sounds bilaterally, no wheezes or crackles CVS: Regular rate and rhythm, normal heart sounds, no murmur Abdomen: Soft, non tender, not distended, normal bowel sounds Neuro: Awake, alert, oriented, conversing well, non focal Extremities: No cyanosis, clubbing or edema Principal Diagnosis Alcohol withdrawal: Alcohol abuse: Suicidal ideation: Paranoia: Hypertension: Depression Insomnia Discharge Exam General- No acute distress Head- atraumatic Eyes- PERRL, EOMI, ENT- oropharynx clear Neck- supple, no JVD Lungs- clear to auscultation Heart- regular rhythm; no murmur Abdomen- normal bowel sounds, soft, nontender Extremities- no calf tenderness Neuro- alert, oriented x 3; PERRL, EOMI; no facial palsy; no dysarthria Skin- warm & dry Discharge Data Allergies Allergy/AdvReac Type Severity Reaction Status Date / Time No Known Allergies Allergy Unverified 01/02/22 14:33 Consultations 02/16/22 11:26 Consult Psychiatry Routine 02/16/22 11:41 ED Decision to Admit Stat 02/16/22 15:10 Consult Behavioral Health Liaison Routine Hospital Course (1) Alcohol withdrawal: (2) Alcohol abuse: (3) Suicidal ideation: (4) Paranoia: (5) Hypertension: 56 yrs old with PMH of alcohol abuse, depression, hypertension, anxiety was brought to the hospital by police after making suicidal statement note. Alcohol abuse Alcohol withdrawal Alcohol level on admission 82 History of alcohol withdrawal and DT in the past Continue Librium with alcohol withdrawal protocol Continue thiamine and folic acid Counseling on alcohol cessation Pt is not going to inpatient alcohol rehab treatment. He said that they asked too much papers for the process No sign of alcohol withdrawal symptoms Stable from medical standpoint to transfer to the Mental health unit Depression suicidal ideation He called suicide hotline and making suicidal statement with note Continue one-to-one observation Psych on board Patient cannot sign AGAINST MEDICAL ADVICE, he is on a 302 warrant Once medically stable he will need inpatient psych treatment or go to inpatient alcohol rehab go to inpatient therapy Continue monitor closely Insomnia Patient said he had a good sleep last night Will discuss to psych team to consider Olanzapine 2.5 mg HS to help him with the sleep Hypertension Noncompliant with lisinopril Continue Lisinopril 5mg daily Continue monitor BP BP stable DVT prophylaxis- sc lovenox Disposition Patient cannot sign AMA Will transfer to the Mental health unit Full code Total Time Total Time Spent Total Time Spent (In Minutes): 35 minutes Discharge Plan Discharge Items Patient Disposition: Transfer Behavioral Health Fac Reason For Visit: ALCOHOL WITHDRAWAL, SUICIDAL IDEATION Discharge Diagnosis: Alcohol withdrawal: Alcohol abuse: Suicidal ideation: Paranoia: Hypertension: Depression Insomnia Activity: Resume your previous activity Non-emergency contact: Primary Care Provider Call non-emergency contact if: you have any medication questions Follow-up/Referrals: PCP,NO [Primary Care Provider] - Diet: Heart Healthy Addtl Attending Provider Instructions: You will be transferred to the mental health unit Follow up with your primary care provider once discharge from the mental health unit Counseling on alcohol cessation Lisinopril increased to 5mg daily Continue to monitor your blood pressure Seek urgent help if you develop any suicidal thought Pending Studies at Discharge: No Stand-Alone Forms: My [facility] Skilled Items DNR: No Lines: None Urinary Catheter: No Medications and DC Order Prescriptions: New cyanocobalamin (vitamin B-12) [Vitamin B-12] 100 mcg Tablet 100 mcg PO QAM Qty: 30 RF: 0 Continued thiamine HCl (vitamin B1) 100 mg tablet 100 mg PO DAILY RF: 0 ascorbic acid (vitamin C) [Vitamin C] 500 mg Tablet 0 mg PO DAILY RF: 0 folic acid 1 mg tablet 1 mg PO QAM RF: 0 Dialyvite 100-1 mg tablet 1 tab PO DAILY RF: 0 cholecalciferol (vitamin D3) [Vitamin D3] 25 mcg (1,000 unit) Tablet,Chewable 0 mcg PO DAILY RF: 0 Changed lisinopril 2.5 mg tablet 5 mg PO QAM Qty: 0 RF: 0 Discontinued melatonin 3 mg tablet 3 mg PO HS RF: 0 Discharge Orders: Discharge Order (Routine); Ordered 02/19/22 Ordered By: Benny Overton Admission Data Admit Date/Time: 02/16/22 11:26 Attending Provider: Benny Overton Admit Provider: Nic Deal Primary Care Provider: PCP,NO Other Providers: Melina Carrion ; Sarah Persaud ; Ann Chun ; Nic Deal
== END 2022-02-19 13:17 | DRG 897 ==
LOC: ED 07:59 → SUATTDRO 11:26 → 2E 11:26

== ENCOUNTER 2022-02-19 11:34 | Inpatient (IN) ==
[2022-02-19] MEDS ORDERED: hydrOXYzine HCl 25 MG TAB PO PRN ×2 (13:00)
[2022-02-19] MEDS ORDERED: BISMUTH SUBSALICYLATE LIQD 236 ML PO PRN (13:00)
[2022-02-19] MEDS ORDERED: ALUMINUM/MAGNESIUM SUSP 30 ML UDC PO PRN (13:00)
[2022-02-19] MEDS ORDERED: SODIUM CHLORIDE 0.65% NA SOLN 45 ML (OCEAN) PRN (13:00)
[2022-02-19] MEDS ORDERED: ACETAMINOPHEN 325 MG TAB PO PRN (13:00)
[2022-02-19] MEDS ORDERED: MAGNESIUM HYDROXIDE SUSP 30 ML UDC PO PRN (13:00)
--- NOTE | 2022-02-19 13:49 | History & Physical ---
Date of Service February 19, 2022 Impression / Recommendations Impression The patient is a 56 year old man with a history of alcohol use who was admitted for SI with plan and note after medical stabilization for alcohol withdrawal on a 201 voluntary commitment. 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 Difficult to fully assess the degree of his alcohol use given his limited insight into the role of alcohol on his recent symptoms and multiple recent medical admissions but given periods of intoxication and withdrawal it is fairly significant and problematic. The patient is deemed unstable and requires psychiatric hospitalization for diagnostic clarification, safety and stabilization, medication management and development of further coping skills. Discussed medication treatment options in detail. Discussed risks, benefits and alternatives including naltexone, SSRI, olanzapine, trazodone, mirtazapine. Patient would like to continue and consented to olanzapine for paranoia and insomnia. Reviewed side effects including but not limited to: movement (TD, NM S), cardiac (QTc prolongation), and metabolic (stroke, insulin resistance) and necessity for fasting lipid and glucose labwork and AIMS done with score of 0. The patient's use history suggests problematic substance use. Brief intervention was offered and accepted. Intervention was greater than 5 minutes in length and included assessing readiness to quit, advice on how to reduce or abstain and to set a specific goal for this hospitalization. land surveying survey worker will also assist in anticipating barriers to reducing or abstaining from substance use and in problem-solving for solutions to those problems while arranging for referral to appropriate treatment. The patient is in contemplative stage with regards to transtheoretical model of change. The patient is advised to decrease consumption due to depressant effects and risk of interaction with prescription medications. The patient agreed to stop drinking alcohol and will be provided with recovery materials to continue to educate self on how to cope with their condition without using substances. Encouraged participation in AA which he will consider. He is currently declining residential treatment and intensive outpatient treatment and MAT. (1) Depression with suicidal ideation: (2) Anxiety: (3) Alcohol use disorder: (4) Delusions: (5) Paranoia: 02/19/22: The patient was admitted to the [facility] ([facility]) on q15 min checks (behavioral with suicide precautions) for safety. The patient will participate in group, recreational, and milieu therapies and will be o ffered additional individual and family sessions as clinically appropriate. -continue olanzapine 2.5 mg qhs -fasting lipid panel and glucose in qAM -continue to engage in motivational interviewing regarding substance use Inventory Assets Strengths: has a very structured daily routine, willing to get help for his insomnia, has housing and financially independent Needs: outpatient services, alcohol use treatment, medication to help with insomnia, has no health insurance Suicide Risk Level Suicide Risk Level: Moderate (q15 min suicide checks) Suicide Risk Level Comments: Acute risk is moderate given SI with plan to shoot himself and note and alcohol use prior to admission and few protective factors but now denying SI and feels safe in the hospital and able to alert nursing should he begin to have SI or feel unsafe. Most significant modifiable risk factor is treating insomnia and alcohol use. Risk Factors Assessment Male: Yes : Yes Do You Have Access To A Gun?: No (police confiscated when he was brought to hospital on 02/16/22 on 302 [address]) Health Problems: No Mental Health Diagnoses: Yes Substance Use Disorders: Yes Previous Attempt: No Family History of Suicide: No Previous Psychiatric Hospitalization: No Hopelessness: No Protective Factors Assessment : No Employed: No Stable Relationships: No Supportive Family: No Good Rapport with Provider: No Psychiatric History Identifying Data CAMILLE MONTENEGRO is a 56-year-old man who currently lives in [facility] alone, has a history of alcohol use disorder , and was admitted on 02/19/22 13:01 on a 201 voluntary commitment for SI with plan and suicide note initially treated on inpatient medicine for complicated alcohol withdrawal and now medically stable for psychiatric treatment. Chief Complaint "I think I got my break last night from sleeping". History of Present Illness Camille is well known to me from the psychiatric consult service and seeing him on the medical floor prior to his psychiatric admission and during past medical admissions for alcohol use. He presented to the hospital on a 302 warrant on 02/16/22 after calling the [place] Crisis line (he thought he was calling a [place] crisis line, he denies any prior service) reporting his suicide plan to drink a lot of alcohol and then shoot himself and placed a note on his door stating "call police-suicide". When asked about his suicide note on the door during my consult on 02/16/22 he told me "that was just so my body could be found if I did the deed that I didn't have the guts to do". When police arrived to his home, alerted by [place] crisis line, they confiscated a gun in the home and brought him to the ED where he was found to be intoxicated and was admitted medically. While on the medical service he initially expressed significant frustration regarding his 302 warrant and being brought to the hospital and showed very limited insight into his suicidal statements and alcohol use. He also made various statements about his belief that he has a "binary" issue wherein his brain goes into "alcohol withdrawals" when he doesn't get enough sleep or when he consumes certain beverages such as tea. He was initially considering inpatient alcohol use treatment but then declined this stating a preference for voluntary inpatient psychiatric treatment. He has been denying SI in recent days and today reports his mood is "much better". He has significant insomnia which he views as his only bothersome mood symptom and that this is what drives his alcohol use and lead him to become suicidal. Last night he received olanzapine and found this was very helpful for sleep and he wishes to continue this. Is pleased he slept last night noting that this provided him with "the break" he's been waiting for and that he watched his vital signs improve on the cafeteria monitor which he associates with "getting one good night of sleep". He is less convinced it has anything to do with not consuming alcohol in recent days. He denies any alcohol cravings stating "I only drank because I couldn't sleep". He also discussed his previous attempts to stay up all night in order to avoid being targeted by robins and rabbits in his yard who he feels watch him and monitor what he's doing. He is very regimented in his daily routine and keeps logs of activities with the birds in his yard, his alcohol consumption and lawn maintenance activities like mowing. Psychiatric ROS notable for denial of hx of or current symptoms of reji, psychosis (though becomes fixated on being targeted by birds and vermin and gets quite suspicious of paperwork), trauma nor anxiety. Past Psychiatric History Current Psychiatric Diagnosis: alcohol use disorder Outpatient Services: none Previous Psych Admissions: none Do You Have Access To A Gun?: No (police confiscated when he was brought to hospital on 02/16/22 on 302 [address]ran) History of Previous Suicide Attempt: No Past Medication Trials: denies and nothing via PPMP but external med rec showed possible past script for ativan Past Head Trauma/Neuro History History of Concussion/Seizure: No Allergies Allergy/AdvReac Type Severity Reaction Status Date / Time No Known Allergies Allergy Unverified 01/02/22 14:33 Home Medications Medication Instructions Recorded Confirmed Type ascorbic acid (vitamin C) 500 mg 500 mg PO DAILY 01/02/22 02/19/22 History tablet (Vitamin C) cholecalciferol (vitamin D3) 25 25 mcg PO DAILY 01/02/22 02/19/22 History mcg (1,000 unit) chewable tablet (Vitamin D3) calcium carbonate 200 mg calcium 200 mg PO QID PRN 02/19/22 02/19/22 History (500 mg) chewable tablet (Tums) cyanocobalamin (vitamin B-12) 100 100 mcg PO QAM #30 tab 02/19/22 02/19/22 Rx mcg tablet (Vitamin B-12) hydroxyzine pamoate 25 mg capsule 25 mg PO BID PRN 02/19/22 02/19/22 History (Vistaril) lisinopril 2.5 mg tablet 2.5 mg PO DAILY 02/19/22 02/19/22 History lorazepam 1 mg tablet (Ativan) 1 mg PO DAILY PRN 02/19/22 02/19/22 History melatonin 3 mg tablet 3 mg PO HS PRN 02/19/22 02/19/22 History Family History Family History of: Doesn't Know Alcohol History Hx of Alcohol Use Over the Past 12 Months: Yes (AUDIT total score of 6) Patient reports using "hard liquor" every evening to assist with sleep; Vokda, Rum, Whiskey, and Gin. He reports using "110-130mL of actual alcohol content", not including the mixer. Patient denies any withdrawal symptoms and does not believe he has an alcohol problem. 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 technology) Employment Status: Unemployed (lives off "dividends" and inheritence) Marital Status: Single Number Of Children: 0 Beliefs That Will Affect Care: None Current Legal Problems: No Hx Legal Problems: No Hx Traumatic Life Events: No Patient History Medical History Abnormal blood electrolyte level Alcohol use disorder Alcohol withdrawal syndrome Alcoholism Surgical History No pertinent past surgical history Social History Smoking Status: Never smoker Second Hand Exposure: No; Hx Alcohol Use: Yes Alcohol type: hard liquor Hx Substance Use: No Preferred Language: Romansh Communication Ability: Effective Analysis Reporting Developer Required: No Beliefs That Will Affect Care: None marital status: Single Current Living Situation: Alone Feels Safe at Home: Yes Assistive Devices: Glasses Assistive Devices Comment: sleep mask Review of Systems Review of Systems: All systems reviewed & are unremarkable except as noted in HPI & below Physical Exam Psychiatric: Orientation: alert and oriented x 3 Apperance: appropriately dressed and appropriately groomed Eye Contact: + fair eye contact Motor Behavior: steady gait and station and no abnormal motor movements Speech: normal rate/rhythm/volume of speech (monotone) Affect: + flat affect Mood: + irritable mood; no depressed mood and no anxious mood Thought Process: + concrete thought process Thought Content: + preoccupation, + paranoid and + delusions Suicidal Thoughts: denies suicidal thoughts Homicidal Thoughts: denies homicidal thoughts Hallucinations: no auditory hallucinations and no visual hallucinations Cognition: recent memory grossly intact, remote memory grossly intact, attention grossly intact and language grossly intact Estimated Intelligence: consistent with education level Insight: + limited insight Judgement: + limited judgement Exam Statement: A physical exam was performed on the medical floor by Dr. Overton for the purposes of medical clearance. I accept that physical as correct and adequate for the purposes of the inpatient physical exam. Results & Data (U) Current Inpatient Medications Current Inpatient Medications: Current Inpatient Medications Acetaminophen (Acetaminophen 325 Mg Tab) 650 mg PO Q4H PRN PRN Reason: Headache or Minor Fever Stop: 03/21/22 12:59 Al Hydrox/Mg Hydrox/Simethicone (Aluminum/Magnesium Susp 30 Ml Udc) 30 ml PO Q4H PRN PRN Reason: GI Upset Stop: 03/21/22 12:59 Bismuth Subsalicylate (Bismuth Subsalicylate Liqd 236 Ml) 15 ml PO PRN PRN PRN Reason: Loose Stool Stop: 03/21/22 12:59 Hydroxyzine HCl (Hydroxyzine Hcl 25 Mg Tab) 50 mg PO HSZ PRN PRN Reason: Insomnia Stop: 03/21/22 12:59 Hydroxyzine HCl (Hydroxyzine Hcl 25 Mg Tab) 25 mg PO Q4H PRN PRN Reason: Anxiety Stop: 03/21/22 12:59 Magnesium Hydroxide (Magnesium Hydroxide Susp 30 Ml Udc) 30 ml PO DAILY PRN PRN Reason: Constipation Stop: 03/21/22 12:59 Olanzapine (Olanzapine 2.5 Mg Tab) 2.5 mg PO HS HARIS Stop: 03/21/22 21:59 Sodium Chloride (Sodium Chloride 0.65% Na Soln 45 Ml (Forrest)) 1 - 2 sprays NA PRN PRN PRN Reason: Nasal Dryness/Congestion Stop: 03/21/22 12:59
[2022-02-19] MEDS ORDERED: OLANZAPINE 2.5 MG TAB PO SCH (22:00)
[2022-02-20] MEDS ORDERED: CHOLECALCIFEROL 1,000 UNITS 25 MCG TAB PO SCH (09:00)
[2022-02-20] MEDS ORDERED: ASCORBIC ACID 500 MG TAB PO SCH (09:00)
[2022-02-20 09:12] LABS: Chol HDL Ratio 1.7 (0-5)
--- NOTE | 2022-02-20 11:23 | Discharge Summary ---
Date of Service February 20, 2022 History of Present Illness Xander is well known to me from the psychiatric consult service and seeing him on the medical floor prior to his psychiatric admission and during past medical admissions for alcohol use. He presented to the hospital on a 302 warrant on 02/16/22 after calling the [place] Crisis line (he thought he was calling a [place] crisis line, he denies any prior service) reporting his suicide plan to drink a lot of alcohol and then shoot himself and placed a note on his door stating "call police-suicide". When asked about his suicide note on the door during my consult on 02/16/22 he told me "that was just so my body could be found if I did the deed that I didn't have the guts to do". When police arrived to his home, alerted by [place] crisis line, they confiscated a gun in the home and brought him to the ED where he was found to be intoxicated and was admitted medically. While on the medical service he initially expressed significant frustration regarding his 302 warrant and being brought to the hospital and showed very limited insight into his suicidal statements and alcohol use. He also made various statements about his belief that he has a "binary" issue wherein his brain goes into "alcohol withdrawals" when he doesn't get enough sleep or when he consumes certain beverages such as tea. He was initially considering inpatient alcohol use treatment but then declined this stating a preference for voluntary inpatient psychiatric treatment. He has been denying SI in recent days and today reports his mood is "much better". He has significant insomnia which he views as his only bothersome mood symptom and that this is what drives his alcohol use and lead him to become suicidal. Last night he received olanzapine and found this was very helpful for sleep and he wishes to continue this. Is pleased he slept last night noting that this provided him with "the break" he's been waiting for and that he watched his vital signs improve on the night monitor which he associates with "getting one good night of sleep". He is less convinced it has anything to do with not consuming alcohol in recent days. He denies any alcohol cravings stating "I only drank because I couldn't sleep". He also discussed his previous attempts to stay up all night in order to avoid being targeted by robins and rabbits in his yard who he feels watch him and monitor what he's doing. He is very regimented in his daily routine and keeps logs of activities with the birds in his yard, his alcohol consumption and lawn maintenance activities like mowing. Psychiatric ROS notable for denial of hx of or current symptoms of reji, psychosis (though becomes fixated on being targeted by birds and vermin and gets quite suspicious of paperwork), trauma nor anxiety. Physical Exam Psychiatric See admission H&P and DOD assessment. Vital Signs (Past 24 Hours) Last Vital Signs Temp 36.5 C 02/20/22 06:39 Pulse 60 02/20/22 06:41 Resp 18 02/20/22 06:39 BP 121/86 02/20/22 06:41 Pulse Ox 94 02/19/22 14:05 Principal Diagnosis alcohol induced mood disorder Psychiatric Data See daily stay summary. In short, safety was maintained. The patient requested discharge as hyperfocussed on his yard, food, and exercise regimen. He attributed all of his issues to "my sleep schedule and drinking and I won't drink again." Reviewed that he has previously been admitted to [facility] detox and people generally require ongoing therapy/support to maintain sobriety and he has very limited options, presumably schizoid with compulsive tendencies. He voiced good understanding of recommendation for inpatient rehab or at least outpatient programming and he declines. Based on my previous interaction with him and opinion discussed with Dr. Carrion, I do not feel he will change his mind and further confinement against his wishes would be counter therapeutic. The most pressing risk factor was mitigated by the police before he came in (confiscating weapon). He did receive limited doses of Zyprexa prn. Reviewed that this medi cation is typically not prescribed on discharge if not agreeing to follow up as requires monitoring (metabolic/TD) but I was willing to provide 10 tabs for prn use. He reported willingness to f/u with MA (previously very paranoid about "government programs"). He did not want assistance in setting up primary care but did discuss how to access [facility] if need for interim care pending insurance. He was future focussed with regards to cleaning out his house to move (though also reported this on last consultation). Cannot exclude bipolar component but seems largely substance induced Day of Discharge Assessment Today the patient continues to request discharge. They note improvement in mood and deny thoughts to harm self or others. Thoughts reveal rigid thinking but no psychosis and they are improved from admission. There is no evidence of psychosis, reji, or ongoing delirium interfering with his ongoing decision making. Given that his suicidal behavior was during an ETOH binge and length of time in hospital so far that he has denied SI and exhibited organized behavior, I do not feel there are ongoing criteria for involuntary commitment. The most appropriate care would be rehab program and patient cannot be committed to such under [place] mental health law. Transition of Care Transition Of Care Record: was reviewed with the patient Advance Directives Advance Directives Information Provided: Yes Advance Directives: No Mental Health Advance Directive: No Advance Directives on File: No Living Will: No Power of Senior Accountant Cpa: No Advance Directives Reason:: Declines as Mental Health Visit. Suicide Risk Level Suicide Risk Level Comments: low in that no longer requiring 24 hr monitoring, stable for outpatient care which he is refusing. Risk Factors Assessment Male: Yes : Yes Do You Have Access To A Gun?: No Health Problems: No Mental Health Diagnoses: Yes Substance Use Disorders: Yes Previous Attempt: No Family History of Suicide: No Previous Psychiatric Hospitalization: No Hopelessness: No Protective Factors Assessment : No Employed: No Stable Relationships: No Supportive Family: No Good Rapport with Provider: No Tobacco Cessation at Discharge Tobacco Cessation Medication Prescribed at Discharge: Not Applicable/Non-Smoker Total Time Total Time Spent: Greater Than 30 Minutes Total Time Includes: Examination of the patient, Discharge Planning and Medication Reconciliation Discharge Data Lab Results 02/20/22 08:09 Fasting Glucose 90 Triglycerides 72 Cholesterol 185 LDL Cholesterol, Calc 60 VLDL Cholesterol, Calc 14 HDL Cholesterol 111 Cholesterol/HDL Ratio 1.7 Hospital Course (1) Depression with suicidal ideation: (2) Anxiety: (3) Alcohol use disorder: (4) Delusions: (5) Paranoia: 02/19/22: The patient was [facility] on q15 min checks (behavioral with suicide precautions) for safety. The patient will participate in group, recreational, and milieu therapies and will be offered additional individual and family sessions as clinically appropriate. -continue olanzapine 2.5 mg qhs -fasting lipid panel and glucose in qAM -continue to engage in motivational interviewing regarding substance use Mental Health & Subst Abuse Tx Therapist Name of Therapist: none Engineer Technician Name of Engineer Technician: none Post Discharge Appointments Primary Care Physician Name Of Family Doctor: Suleman Huerta Smoking Cessation Counseling Tobacco Cessation Medication Prescribed at Discharge: Not Applicable/Non-Smoker Other #1: Name of Aftercare Appointment: [facility] Office Phone Number of Aftercare Appointment: Aftercare Appointment Comment: Follow-up for insurance as needed Discharge Plan Discharge Items Patient Disposition: Home - Self-Care Reason For Visit: MDD Discharge Diagnosis: alcohol induced mood disorder Activity: Resume your previous activity Non-emergency contact: Primary Care Provider Call non-emergency contact if: you have any medication questions and your symptoms worsen Follow-up/Referrals: PCP,NO [Primary Care Provider] - Diet: Regular Addtl Attending Provider Instructions: SPECIAL CARE INSTRUCTIONS: 1. Follow through with your scheduled aftercare appointments. If unable to keep an appointment, please call to reschedule. 2. Take your medication only as prescribed. Medication should not be changed or stopped without the approval of your doctor. In the event of worsening symptoms or concerns about side effects, contact your doctor immediately. 3. Utilize new healthy coping skills, anger management skills, and stress management skills learned during your hospitalization. Journal feelings and process them with a support person. Identify stressors or situations that may result in relapse, deterioration or inappropriate behaviors and develop a plan to deal with those issues. 4. If your coping skills are ineffective and you are in crisis, contact your outpatient providers for direction. If unable to reach your providers, please call the [facility] CRISIS LINE AT , go to the [facility] walk-in center at [address] [place] [address] A, [place], or go to the closest Emergency Room. 5. Avoid alcohol and un-prescribed drugs. 6. You have been provided with the Mental Health Advance Directives Pamphlet for your review. 7. Your condition is stable for discharge to outpatient level of care, but recovery is an ongoing process. Ifthoughts to harm yourself or others return, follow the safety plan developed during your stay. Planning for a safe return home includes securing weapons. Our treatment team recommends weaponsbe removed from the home until your outpatient provider reassesses your progress. In rare cases where the items themselvescannot be removed, guns and ammunitionshould be secured separatelyand keys stored by a reliable personoutside of the home. If you were admitted on an involuntary commitment, the police or other legal authorities may be involved in this process. AFTERCARE APPOINTMENTS: * Please call your insurance company prior to your scheduled appointment to confirm your aftercare providers are covered. Take your insurance information to your appointments. WHO TO CALL AND WHEN: Medical Emergencies: For questions or emergencies related to your hospital stay, please contact the Inpatient Behavioral Health Unit at [phone]. A psychiatric social worker supervisor is on-call 25/04 for the Behavioral Health Unit for emergencies At any time you feel your situation is an emergency, you may also call 911 immediately. Pending Studies at Discharge: No Stand-Alone Forms: My [facility] [place], Smoking Cessation Medications and DC Order Prescriptions: New olanzapine 2.5 mg Tablet 2.5 mg PO HS PRN (Reason: Insomnia) 10 Days Qty: 10 RF: 0 Continued ascorbic acid (vitamin C) [Vitamin C] 500 mg Tablet 500 mg PO DAILY RF: 0 cholecalciferol (vitamin D3) [Vitamin D3] 25 mcg (1,000 unit) Tablet,Chewable 25 mcg PO DAILY RF: 0 Discontinued lorazepam [Ativan] 1 mg tablet 1 mg PO DAILY PRN (Reason: Anxiety) RF: 0 melatonin 3 mg tablet 3 mg PO HS PRN (Reason: Insomnia) RF: 0 hydroxyzine pamoate [Vistaril] 25 mg capsule 25 mg PO BID PRN (Reason: Anxiety) RF: 0 calcium carbonate [Tums] 200 mg calcium (500 mg) tablet,chewable 200 mg PO QID PRN (Reason: Indigestion) RF: 0 lisinopril 2.5 mg tablet 2.5 mg PO DAILY RF: 0 cyanocobalamin (vitamin B-12) [Vitamin B-12] 100 mcg Tablet 100 mcg PO QAM Qty: 30 RF: 0 Discharge Orders: Discharge Order (Routine); Ordered 02/20/22 Ordered By: Sarah Persaud Admission Data Admit Date/Time: 02/19/22 13:01 Attending Provider: Sarah Persaud Admit Provider: Melina Carrion Primary Care Provider: PCP,NO Other Interventions: Discharge Summary Assessment (RN) Last Done: 02/20/22 11:35 PSY Interdisciplinary Discharge Planning Last Done: 02/20/22 11:37 Coding Level of Care Code 16244 D/C day mgmt > 30 min Diagnoses Depression with suicidal ideation F32.A; R45.851 Anxiety F41.9 Alcohol use disorder Delusions F22 Paranoia F22
== END 2022-02-20 12:20 | disposition home or self-care (01) | DRG 897 ==
LOC: 3S 13:01 → SUATTDRO 13:01 → 3S 23:50